=== PATIENT | female | born 1990 | race Caucasian/White ===

== ENCOUNTER 2017-02-02 16:05 | Emergency (ER) | payer MEDICAID ==
[~2017-02-02] VITALS: Ht 165.1 cm; Wt 100.0 kg
[~2017-02-02 16:05] MED LIST: ACET500C5 PO; ONDA4TAB35 PO; PRENAT PO
[2017-02-02 16:07] VITALS: Ht 165.1 cm; Wt 100.0 kg
[2017-02-02] MEDS ORDERED: IBUPROFEN 600 MG TAB PO STA (16:32)
--- NOTE | 2017-02-02 16:40 | ERD ---
ER Documentation Chief Complaint Date/Time DATE: 02/02/17 TIME: 16:38 Chief Complaint BACK PAIN AFETR A FALL HPI This is a 26-year-old female who is breast-feeding presenting to the emergency department complaining of lumbar back pain status post ground-level fall that occurred earlier today. Patient states that she tripped and hit her knees, elbow against the ground and then fell backward on her lumbar back. Patient states the pain is localized 5 out of 10 and describes as achy and constant. She denies any saddle anesthesia, bladder or bowel incontinence, neuro deficits. Patient states that she has not taken any medications for this. ROS All systems reviewed and are negative except as per history of present illness. Medications Home Meds Active Scripts Ibuprofen* (Ibuprofen*) 400 Mg Tablet, 400 MG PO Q6H Y for PAIN, #30 TAB Prov:IAN BLUNT PA-C 02/02/17 Ondansetron Hcl* (Zofran* ODT) 4 mg -ODT Tab.disper, 4 MG PO Q8 Y for NAUSEA AND OR VOMITING, #30 TAB Prov:BRUNA HILL NP 01/21/16 Acetaminophen* (Tylophen*) 500 Mg Capsule, 1 CAP PO Q6H Y for PAIN AND OR ELEVATED TEMP, #20 CAP Prov:BRUNA HILL NP 01/21/16 Reported Medications Multivit/Min/Fol Ac/Iron/Pren* ( S*) Unknown Strength Tab, PO DAILY, TAB 01/21/16 Allergies Allergies: Coded Allergies: No Known Allergy (Unverified , 02/02/17) PMhx/Soc History of Surgery: Yes (C SECTION ) Anesthesia Reaction: No Hx Neurological Disorder: No Hx Respiratory Disorders: No Hx Cardiac Disorders: No Hx Psychiatric Problems: No Hx Miscellaneous Medical Probl: No Hx Alcohol Use: No Hx Substance Use: No Hx Tobacco Use: No Smoking Status: Never smoker Physical Exam Vitals Vital Signs Date Time Temp Pulse Resp B/P Pulse Ox O2 Delivery O2 Flow Rate FiO2 02/02/17 19:20 98.0 68 18 110/76 99 02/02/17 16:07 98.1 89 18 138/78 99 Physical Exam GENERAL: WD/WN, in no apparent distress, non-toxic appearing HENT: NC/AT EYES: Conjunctiva normal NECK: Supple PULM: Normal labored breathing CV: Good capillary refill GI: Non-distended, no guarding BACK: no deformities noted, normal spinal curvature, TTP on lumbar region, tender on spine midline in the lumbosacral region, full range of extremities EXT: No clubbing, cyanosis, or edema NEURO: Moves on all fours, sensation intact, normal gait SKIN: intact PSYCH: Normal mood Results 24 hrs Current Medications Medications (Trade) Dose Ordered Sig/Alfred Route PRN Reason Start Time Stop Time Status Last Admin Dose Admin Ibuprofen (Motrin) 600 mg ONCE STAT PO 02/02/17 16:32 02/02/17 16:34 DC 02/02/17 16:48 Procedures/MDM This is a 26-year-old female who is breast-feeding presenting to the emergency department complaining of lumbar back pain status post ground-level fall that occurred earlier today. Patient states that she tripped and hit her knees, elbow against the ground and then fell backward on her lumbar back. There is no evidence of any fracture dislocation on extremities. Patient did not have any neuro deficits on examination. An x-ray of the lumbar spine has been done did not show any evidence of any fracture dislocation. In the ED patient was given ibuprofen for the pain, she is neurovascularly intact in hematoma stable for discharge for home with precautions to return to the ER for any worsening symptoms. Discussed to follow-up with her primary care physician. Patient understands and agrees with this plan Departure Diagnosis: Primary Impression: Back pain Additional Impression: Injury of back Condition: Stable IAN BLUNT PA-C February 02, 2017 16:40
--- NOTE | 2017-02-02 18:52 | RADRPT ---
PROCEDURE: XR Lumbar Spine. CLINICAL INDICATION: Low back pain following a fall. TECHNIQUE: AP, cone-down lateral, and lateral views of the lumbar spine were obtained. COMPARISON: None. FINDINGS: Hypoplastic ribs are present at T12. Mineralization is within normal limits. Vertebral bodies are normal in height. No fracture is identified. Lumbar lordosis is preserved. No vertebral subluxati on is seen. The intervertebral discs are normal in height. Paraspinal contours are unremarkable. RPTAT:HJJR IMPRESSION: Unremarkable three view series of the lumbar spine. Physician Jyoti Date Time Electronically viewed and signed by Physician Jyoti on 02/02/2017 18:52 JR/
[2017-02-02] MEDS ORDERED: NAPR-260 PO (18:59)
[2017-02-02] MEDS ORDERED: IBUP400T22 PO (19:00)
[2017-02-02 19:20] VITALS: BP 110/76; PULSE 68; RESP 18; TEMP 98
== END 2017-02-02 19:25 | disposition home or self-care (01) ==
LOC: FTE 16:05
DX: S29.9XXA Unspecified injury of thorax, initial encounter (principal); W01.0XXA Fall on same level from slipping, tripping and stumbling without subsequent striking against object, initial encounter; Y92.9 Unspecified place or not applicable
CPT/HCPCS: 72100; Z7502; Z7610

== ENCOUNTER 2017-05-06 00:17 | Inpatient (IN) | payer MEDICAID ==
[~2017-05-06] VITALS: Ht 162.6 cm; Wt 79.6 kg
[~2017-05-06 00:17] MED LIST changes: +IBUP400T22 PO
--- NOTE | 2017-05-06 01:27 | ERA ---
ER Documentation Chief Complaint Date/Time DATE: 05/06/17 TIME: 01:26 Chief Complaint Abdominal pain HPI The patient is a 27-year-old female, presenting to the ER because of epigastric and upper quadrant abdominal pain that began about 2 hour prior to arrival after eating greasy and fatty food. She has similar symptoms previously, denies fever, chills, neck pain, chest pain, dyspnea, nausea, vomiting or dysuria, diarrhea. She does not smoke or drink Past medical history: None Past surgical history: ROS All systems reviewed and are negative except as per history of present illness. Medications Home Meds Active Scripts Ibuprofen* (Ibuprofen*) 400 Mg Tablet, 400 MG PO Q6H Y for PAIN, #30 TAB Prov:IAN BLUNT PA-C 02/02/17 Ondansetron Hcl* (Zofran* ODT) 4 mg -ODT Tab.disper, 4 MG PO Q8 Y for NAUSEA AND OR VOMITING, #30 TAB Prov:BRUNA HILL NP 01/21/16 Acetaminophen* (Tylophen*) 500 Mg Capsule, 1 CAP PO Q6H Y for PAIN AND OR ELEVATED TEMP, #20 CAP Prov:BRUNA HILL NP 01/21/16 Reported Medications Multivit/Min/Fol Ac/Iron/Pren* ( S*) Unknown Strength Tab, PO DAILY, TAB 01/21/16 Allergies Allergies: Coded Allergies: No Known Allergy (Unverified , 02/02/17) PMhx/Soc History of Surgery: Yes (C SECTION ) Anesthesia Reaction: No Hx Neurological Disorder: No Hx Respiratory Disorders: No Hx Cardiac Disorders: No Hx Psychiatric Problems: No Hx Miscellaneous Medical Probl: No Hx Alcohol Use: No Hx Substance Use: No Hx Tobacco Use: No Physical Exam Vitals Vital Signs Date Time Temp Pulse Resp B/P Pulse Ox O2 Delivery O2 Flow Rate FiO2 05/06/17 01:20 97.7 85 20 121/88 100 Room Air 05/06/17 00:24 97.7 63 20 111/79 98 Physical Exam Const: No acute distress. Head: Atraumatic. Eyes: Normal Conjunctiva. ENT: Normal External Ears, Nose and Mouth. Neck: Full range of motion. No meningismus. Resp: Clear to auscultation bilaterally. Cardio: Regular rate and rhythm. Abd: Soft, non distended, normal bowel sounds, moderate epigastric and right upper quadrant tenderness, no right lower quadrant, CVA, rigidity, rebound tenderness Skin: No petechiae or rashes. Back: No midline or flank tenderness. Ext: No cyanosis, or edema. Neur: Awake and alert. No focal deficit Psych: Normal Mood and Affect. Result Diagram: 05/06/17 0130 05/06/17 0130 Results 24 hrs Laboratory Tests Test 05/06/17 01:30 05/06/17 01:50 White Blood Count 10.810^3/ul Red Blood Count 4.8210^6/ul Hemoglobin 13.5g/dl Hematocrit 42.6% Mean Corpuscular Volume 88.4fl Mean Corpuscular Hemoglobin 28.0pg Mean Corpuscular Hemoglobin Concent 31.7g/dl Red Cell Distribution Width 13.3% Platelet Count 05449^3/UL Mean Platelet Volume 10.8fl Neutrophils % 57.5% Lymphocytes % 27.3% Monocytes % 8.6% Eosinophils % 5.5% Basophils % 0.6% Nucleated Red Blood Cells % 0.0/100WBC Neutrophils # 6.210^3/ul Lymphocytes # 2.910^3/ul Monocytes # 0.910^3/ul Eosinophils # 0.610^3/ul Basophils # 0.110^3/ul Nucleated Red Blood Cells # 0.010^3/ul Sodium Level 149mmol/L Potassium Level 3.3mmol/L Chloride Level 102mmol/L Carbon Dioxide Level 29mmol/L Anion Gap 21 Blood Urea Nitrogen 15mg/dl Creatinine 0.91mg/dl Glucose Level 127mg/dl Calcium Level 9.9mg/dl Total Bilirubin 0.8mg/dl Direct Bilirubin 0.00mg/dl Indirect Bilirubin 0.8mg/dl Aspartate Amino Transf (AST/SGOT) 29IU/L Alanine Aminotransferase (ALT/SGPT) 32IU/L Alkaline Phosphatase 100IU/L Total Protein 8.8g/dl Albumin 5.0g/dl Globulin 3.80g/dl Albumin/Globulin Ratio 1.31 Lipase 270U/L Bedside Urine pH (LAB) 7.0 Bedside Urine Protein (LAB) 1+ Bedside Urine Glucose (UA) Negative Bedside Urine Ketones (LAB) Trace Bedside Urine Blood Negative Bedside Urine Nitrite (LAB) Negative Bedside Urine Leukocyte Esterase (L Negative Current Medications Medications (Trade) Dose Ordered Sig/Alfred Route PRN Reason Start Time Stop Time Status Last Admin Dose Admin Sodium Chloride (NS) 1,000 ml @ 1,000 mls/hr Q1H STAT IV 05/06/17 01:44 05/06/17 02:43 DC 05/06/17 01:48 Morphine Sulfate (morphine) 4 mg ONCE STAT IV 05/06/17 01:44 05/06/17 01:45 DC 05/06/17 01:48 Ondansetron HCl 4 mg 4 mg ONCE STAT IV 05/06/17 01:44 05/06/17 01:45 DC 05/06/17 01:48 Potassium Chloride 20 meq/ Sodium Chloride 110 ml @ 55 mls/hr ONCE ONCE IVPB 05/06/17 03:30 05/06/17 05:29 Piperacillin Sod/ Tazobactam Sod (Zosyn 3.375gm/ 100 ml (Pmx)) 100 ml @ 200 mls/hr ONCE ONCE IVPB 05/06/17 03:30 05/06/17 03:59 05/06/17 03:49 Morphine Sulfate (morphine) 4 mg ONCE STAT IV 05/06/17 03:29 05/06/17 03:31 DC 05/06/17 03:50 Ondansetron HCl 4 mg 4 mg ONCE STAT IV 05/06/17 03:29 05/06/17 03:31 DC 05/06/17 03:50 Sodium Chloride (NS) 1,000 ml @ 1,000 mls/hr Q1H ONCE IV 05/06/17 03:30 05/06/17 04:29 05/06/17 03:49 Procedures/[place] [address] Radiology Main Line: [phone] DIAGNOSTIC IMAGING REPORT Patient: NAN BELTRAN : 1990 Age: 27 Sex: F MR #: [id number] DOS: 05/06/17 0145 Ordering MD: MARIE AQUINO MD Location: E/R Room/Bed: PROCEDURE: Ultrasound of the abdomen. CLINICAL INDICATION: Right upper quadrant pain. TECHNIQUE: Sonographic images of the abdomen were performed. COMPARISON: No pertinent prior examinations were submitted for comparison. FINDINGS: Liver: The liver is normal in echogencity and size measuring approximately 17.3 cm. The hepatic veins and portal veins are patent with appropriate directional flow. No intrahepatic ductal dilatation is seen. Gallbladder: The gallbladder is moderately distended. Multiple stones are noted in the gallbladder. Positive sonographic Vidales's sign is reported. There is gallbladder wall thickening measuring up to 3.3 mm. No definite pericholecystic free fluid is seen. The common duct measures 7.9 mm. Pancreas: There is limited evaluation of the pancreatic body and tail. The visualized portions of the pancreas are unremarkable. Kidneys: The right kidney measures 11.3 cm. There is normal corticomedullary differentiation. There is no evidence of renal calculus or hydronephrosis. IVC: The visualized portion of the inferior vena cava is unremarkable. Aorta: Normal in size. Free fluid: None. IMPRESSION: Cholelithiasis with gallbladder wall thickening and positive sonographic Vidales' s sign. Findings are most compatible with acute cholecystitis. Common bile duct dilatation. RPTAT: HIKT .Bruce Tom MD, MD Date Time Electronically viewed and signed by .Bruce Tom MD, MD on 05/06/2017 02:52 .T/ CC: MARIE AQUINO MD MEDICAL MAKING DECISION: The patient is a 27-year-old female, presenting with acute cholecystitis, acute hypokalemia. She was treated with 2 L of normal saline for clinical dehydration, morphine 4 mg IV 2 for pain and Zofran 4 mg IV x2, KCl 20 mEq IV for acute hypokalemia, Zosyn IV for acute cholecystitis The differential diagnoses considered include but are not limited to cholelithiasis, cholecystitis, cystitis, pancreatitis, hepatitis, gastritis, peptic ulcer disease, gastric ulcer, appendicitis, diverticulitis, cholangitis, choledocholithiasis, partial small bowel obstruction. Departure Diagnosis: Primary Impression: Cholecystitis Additional Impression: Hypokalemia Condition: Stable Comments Consultation: I discussed the present with the on-call general surgeon Dr. Mann at 3:40 AM, who was made aware of the lab, the treatment, the patient condition. He accepted the consult I discussed the findings with the patient. I discussed the patient with the on- call hospitalist Dr. Amato at 3:50 AM who was made aware of the lab, the treatment, the patient condition and my discussion with the surgeon. [facility] MARIE AQUINO MD May 06, 2017 01:27
[2017-05-06] MEDS ORDERED: morphine 4 MG/ML VIAL IV STA ×2 (01:44→03:29)
[2017-05-06] MEDS ORDERED: SOD CHLORIDE 0.9% 1,000 ML IV STA (01:44)
[2017-05-06] MEDS ORDERED: ONDANSETRON 4 MG INJ IV STA ×2 (01:44→03:29)
[2017-05-06 01:45] LABS: URINE BLOOD (Dip) POC Negative (NEGATIVE)
[2017-05-06 01:50] LABS: BASOPHIL # 0.1 10^3/ul (0.0-0.1); BASOPHILS % 0.6 % (0.0-2.0); EOSINOPHILS # 0.6 10^3/ul (0.0-0.5); EOSINOPHILS % 5.5 % (0.0-7.0); HEMATOCRIT 42.6 % (37.0-47.0); HEMOGLOBIN 13.5 g/dl (12.0-16.0); LYMPHOCYTES # 2.9 10^3/ul (0.8-2.9); LYMPHOCYTES % 27.3 % (15.0-51.0); MEAN CORPUSCULAR HGB CONC 31.7 g/dl (32.0-37.0); MEAN CORPUSCULAR VOLUME 88.4 fl (82.0-101.0); MEAN PLATELET VOLUME 10.8 fl (7.4-10.4); MONOCYTE # 0.9 10^3/ul (0.3-0.9); MONOCYTES % 8.6 % (0.0-11.0); NEUTROPHIL # 6.2 10^3/ul (1.6-7.5); NEUTROPHILS % 57.5 % (39.0-77.0); PLATELET COUNT 306 10^3/UL (140-415); RED BLOOD COUNT 4.82 10^6/ul (4.20-5.40); RED CELL DISTRIBUTION WIDTH 13.3 % (11.5-14.5); WHITE BLOOD COUNT 10.8 10^3/ul (4.8-10.8)
[2017-05-06 02:08] LABS: ALBUMIN/GLOBULIN RATIO 1.31; BILIRUBIN,INDIRECT 0.8 mg/dl (0-1.1); BILIRUBIN,TOTAL 0.8 mg/dl (0.2-1.3); CALCIUM 9.9 mg/dl (8.4-10.2); CREATININE 0.91 mg/dl (0.44-1.00); POTASSIUM 3.3 mmol/L (3.5-5.1); TOTAL PROTEIN 8.8 g/dl (6.1-8.1)
--- NOTE | 2017-05-06 02:53 | RADRPT ---
PROCEDURE: Ultrasound of the abdomen. CLINICAL INDICATION: Right upper quadrant pain. TECHNIQUE: Sonographic images of the abdomen were performed. COMPARISON: No pertinent prior examinations were submitted for comparison. FINDINGS: Liver: The liver is normal in echogencity and size measuring approximately 17.3 cm. The hepatic vei ns and portal veins are patent with appropriate directional flow. No intrahepatic ductal dilatation is seen. Gallbladder: The gallbladder is moderately distended. Multiple stones are noted in the gallbladder . Positive sonographic Vidales's sign is reported. There is gallbladder wall thickening measuring u p to 3.3 mm. No definite pericholecystic free fluid is seen. The common duct measures 7.9 mm. Pancreas: There is limited evaluation of the pancreatic body and tail. The visualized portions of the pancreas are unremarkable. Kidneys: The right kidney measures 11.3 cm. There is normal corticomedullary differentiation. Ther e is no evidence of renal calculus or hydronephrosis. IVC: The visualized portion of the inferior vena cava is unremarkable. Aorta: Normal in size. Free fluid: None. IMPRESSION: Cholelithiasis with gallbladder wall thickening and positive sonographic Vidales's sign. Findings ar e most compatible with acute cholecystitis. Common bile duct dilatation. RPTAT: HIKT .Bruce Tom MD, MD Date Time Electronically viewed and signed by .Bruce Tom MD, on 05/06/2017 02:52 .T/
[2017-05-06] MEDS ORDERED: POTASSIUM CHLORIDE 20 MEQ in SOD CHLORIDE 0.9% 100 ML IVPB ONE (03:30)
[2017-05-06] MEDS ORDERED: PIPER-TAZO 3.375 GM IV (PMX) 100 ML IVPB ONE (03:30)
[2017-05-06] MEDS ORDERED: SOD CHLORIDE 0.9% 1,000 ML IV ONE (03:30)
--- NOTE | 2017-05-06 04:34 | HP ---
Date/Time of Note Date/Time of Note DATE: 05/06/17 TIME: 04:34 Assessment/Plan VTE Prophylaxis VTE Prophylaxis Intervention: SCD's Assessment/Plan Chief Complaint/Hosp Course This is a 27-year-old female being admitted to the [facility] floor for: #1 acute cholecystitis: LFTs and appear normal within normal values. Ultrasound did show signs of cholelithiasis acute cholecystitis and some common bile duct dilatation. At the current time we will treat with Zosyn. Keep the patient n.p.o. except meds. IV fluid hydration with normal saline. IV narcotic pain control. Surgery on-call is on consult via the ED. #2 obesity: We will check his lipid panel, TSH and A1c. #3 DVT and GI prophylaxis: SCDs, acid gilbert Further treatment strategy will be implemented as per the clinical course Problems: HPI/ROS Admit Date/Time Admit Date/Time Hx of Present Illness Chief complaint: Right upper quadrant abdominal pain This is a 27-year-old female, presenting to the ER because of epigastric and right upper quadrant abdominal pain that began about 2 hour prior to arrival after eating greasy and fatty food. He states the pain was sharp 10 out of 10 in intensity. Currently she states the pain has been subsided with the pain medications that she received in the ER. She has similar symptoms previously, denies fever, chills, neck pain, chest pain, dyspnea, nausea, vomiting or dysuria, diarrhea. Allergies: NKDA Medications: None ROS Const: As per HPI Eyes : No pain discharge or redness or change in visual acuity ENT: No pain, sore throat, congestion, congestion, dysphagia or discharge Respiratory: No shortness of breath, cough, sputum, wheezing, or pleuritic pain Cardiovascular: No chest pain, palpitation, PND, or edema GI : As per HPI Genitourinary: No dysuria, hematuria, flank pain , discharge or CVA tenderness Musculoskeletal: No joint pain, back pain, neck pain, restricted range of motion in neck or joints Skin: No rash, bruising or hives Neuro: No headache, dizziness, syncope, seizure, focal weakness Endocrine: No polyuria, polydipsia, temperature intolerance Psych: No hallucination, depression, anxiety or suicidal ideation PMH/Family/Social Past Medical History Medical History: no pertinent history Past Surgical History 1 Family History Significant Family History: no pertinent family hx Social History Alcohol Use: none Smoking Status: Never smoker Drug Use: none Exam/Review of Systems Vital Signs Vitals Vital Signs Date Time Temp Pulse Resp B/P Pulse Ox O2 Delivery O2 Flow Rate FiO2 05/06/17 04:20 97.7 76 20 110/86 94 Room Air Exam Exam General: Patient is lying in bed sleeping comfortably, easily arousable. HEENT: Atraumatic, normocephalic. The pupils are equal, round and reactive. Extraocular motor are intact Neck: Supple with full range of motion. No rigidity or meningismus Chest: Nontender Lungs: Clear to auscultation bilaterally no crackles rales or wheezing Heart: Normal S1-S2, Regular rhythm and rate. No overt murmurs appreciated Abdomen: Soft, nondistended, right upper quadrant tenderness to palpation Extremities: Normal to inspection, no edema no cyanosis Neurologic: Normal mental status, speech normal, cranial nerves II through XII are intact, motor and sensory are intact, no focal weakness Additional Comments PROCEDURE: Ultrasound of the abdomen. CLINICAL INDICATION: Right upper quadrant pain. TECHNIQUE: Sonographic images of the abdomen were performed. COMPARISON: No pertinent prior examinations were submitted for comparison. FINDINGS: Liver: The liver is normal in echogencity and size measuring approximately 17.3 cm. The hepatic veins and portal veins are patent with appropriate directional flow. No intrahepatic ductal dilatation is seen. Gallbladder: The gallbladder is moderately distended. Multiple stones are noted in the gallbladder. Positive sonographic Vidales's sign is reported. There is gallbladder wall thickening measuring up to 3.3 mm. No definite pericholecystic free fluid is seen. The common duct measures 7.9 mm. Pancreas: There is limited evaluation of the pancreatic body and tail. The visualized portions of the pancreas are unremarkable. Kidneys: The right kidney measures 11.3 cm. There is normal corticomedullary differentiation. There is no evidence of renal calculus or hydronephrosis. IVC: The visualized portion of the inferior vena cava is unremarkable. Aorta: Normal in size. Free fluid: None. IMPRESSION: Cholelithiasis with gallbladder wall thickening and positive sonographic Vidales' s sign. Findings are most compatible with acute cholecystitis. Common bile duct dilatation. RPTAT: HIKT .Bruce Tom MD, MD Date Time Electronically viewed and signed by .Bruce Tom MD, MD on 05/06/2017 02:52 .T/ Labs Result Diagram: 05/06/17 0130 05/06/17 0130 Medications Medications Current Medications Potassium Chloride/Sodium Chloride (KCl/NS) 110 ml @ 55 mls/hr ONCE ONCE IVPB Last administered on 05/06/17t 04:27; Admin Dose 55 MLS/HR; Start 05/06/17 at 03:30; Stop 05/06/17 at 05:29 STACI DOMINGUEZ May 06, 2017 04:34
[2017-05-06] MEDS ORDERED: NACL 0.9% 3 ML SYG IV SCH (05:00)
[2017-05-06] MEDS ORDERED: ACETAMINOPHEN 325 MG TAB PO PRN (05:00)
[2017-05-06] MEDS ORDERED: ONDANSETRON 4 MG INJ IV PRN (05:00)
[2017-05-06] MEDS: SOD CHLORIDE 0.9% 1,000 ML IV SCH ×3 (05:29→23:23)
[2017-05-06] MEDS ORDERED: PANTOPRAZOLE 40 MG INJ IV SCH (06:00)
[2017-05-06 07:05] VITALS: TEMP 98
[2017-05-06 07:43] LABS: CHOL/HDL RATIO 2.5 RATIO
[2017-05-06] MEDS: morphine 4 MG/ML VIAL IV PRN ×2 (08:37→13:24)
[2017-05-06 08:56] VITALS: Ht 162.6 cm; Wt 79.6 kg
[2017-05-06 08:57] VITALS: BP 106/69; PULSE 74; RESP 18
[2017-05-06] MEDS: PIPER-TAZO 3.375 GM IV (PMX) 100 ML IVPB SCH ×3 (11:52→19:01)
[2017-05-06 17:48] VITALS: BP 103/67; RESP 16
--- NOTE | 2017-05-06 20:20 | CONS ---
Date/Time of Note Date/Time of Note DATE: 05/06/17 TIME: 20:16 Assessment/Plan Assessment/Plan Chief Complaint/Hosp Course 27-year-old female with acute cholecystitis * Patient clinically feels better * No leukocytosis. LFTs normal. * Continue broad-spectrum intravenous antibiotics * Advance to clear liquid diet Further recommendations will made based on patient's clinical course. Problems: Consultation Date/Type/Reason Admit Date/Time Date of Consultation: May 06, 2017 Type of Consultation: GENERAL SURGERY Reason for Consultation Abdominal pain Hx of Present Illness Patient is a 27-year-old female presented to the emergency room complaining of right upper quadrant abdominal pain for 1 day. This was associated with nausea and vomiting. She denies any diarrhea/constipation or fever/chills. Patient reports a couple of similar episodes in the past which resolved spontaneously after 5 minutes. On arrival to the emergency room and ultrasound was done which showed gallstones and mild gallbladder wall thickening. She has since been admitted and started on broad-spectrum intravenous antibiotics and pain control. Currently, she states she feels better and denies any abdominal pain at this time. A 14 point review of systems was conducted and was negative except for that which is mentioned in HPI Past Medical History Medical History: no pertinent history Past Surgical History 8 months ago Family History Significant Family History: no pertinent family hx Social History Alcohol Use: none Smoking Status: Never smoker Drug Use: none Exam/Review of Systems Vital Signs Vitals Vital Signs Date Time Temp Pulse Resp B/P Pulse Ox O2 Delivery O2 Flow Rate FiO2 05/06/17 17:48 97.8 72 16 103/67 96 05/06/17 08:57 Room Air Exam GENERAL: Awake, alert, oriented x 3. No acute distress. SKIN: No jaundice. HEENT: PERRLA, EOMI, No Scleral Icterus NECK: Supple without JVD CARDIOVASCULAR: S1S2, regular rate and rhythm. No murmurs appreciated. RESPIRATORY: Clear to auscultation bilaterally. ABDOMEN: Soft, bowel sounds present, nondistended, mild right upper quadrant tenderness to palpation. There is no evidence of rebound or guarding.. EXTREMITIES: Free range of motion x 4. No cyanosis, edema, or clubbing. NEUROLOGIC: Cranial nerves II-XII are intact. Sensation is intact grossly. Results Result Diagram: 05/06/17 0130 05/06/17 0130 Results 24 hrs Laboratory Tests Test 05/06/17 01:30 05/06/17 01:50 White Blood Count 10.8 # Red Blood Count 4.82 Hemoglobin 13.5 Hematocrit 42.6 Mean Corpuscular Volume 88.4 Mean Corpuscular Hemoglobin 28.0 L Mean Corpuscular Hemoglobin Concent 31.7 L Red Cell Distribution Width 13.3 Platelet Count 306 Mean Platelet Volume 10.8 H Neutrophils % 57.5 Lymphocytes % 27.3 Monocytes % 8.6 Eosinophils % 5.5 Basophils % 0.6 Nucleated Red Blood Cells % 0.0 Neutrophils # 6.2 Lymphocytes # 2.9 Monocytes # 0.9 Eosinophils # 0.6 H Basophils # 0.1 Nucleated Red Blood Cells # 0.0 Sodium Level 149 H Potassium Level 3.3 L Chloride Level 102 Carbon Dioxide Level 29 Anion Gap 21 H Blood Urea Nitrogen 15 Creatinine 0.91 Glucose Level 127 Hemoglobin A1c 5.2 Calcium Level 9.9 Total Bilirubin 0.8 Direct Bilirubin 0.00 Indirect Bilirubin 0.8 Aspartate Amino Transf (AST/SGOT) 29 Alanine Aminotransferase (ALT/SGPT) 32 Alkaline Phosphatase 100 Total Protein 8.8 H Albumin 5.0 H Globulin 3.80 H Albumin/Globulin Ratio 1.31 Triglycerides Level 68 Cholesterol Level 170 LDL Cholesterol, Calculated 90 HDL Cholesterol 66 Cholesterol/HDL Ratio 2.5 Lipase 270 Thyroid Stimulating Hormone (TSH) 1.280 Bedside Urine pH (LAB) 7.0 Bedside Urine Protein (LAB) 1+ H Bedside Urine Glucose (UA) Negative Bedside Urine Ketones (LAB) Trace H Bedside Urine Blood Negative Bedside Urine Nitrite (LAB) Negative Bedside Urine Leukocyte Esterase (L Negative Medications Medications Current Medications Sodium Chloride (NS) 1,000 ml @ 100 mls/hr Q10H IV Last administered on 18:58; Admin Dose 100 MLS/HR; Start 05/06/17 at 04:34 Ondansetron HCl (Zofran Inj) 4 mg Q6H PRN IV NAUSEA AND/OR VOMITING; Start 08/12 at 05:00 Acetaminophen (Tylenol Tab) 650 mg Q6H PRN PO PAIN LEVEL 1-3 OR FEVER; Start at 05:00 Morphine Sulfate 3 mg 3 mg Q4H PRN IV SEVERE PAIN LEVEL 7-10 Last administered on 05/06/17 13:24; Admin Dose 3 MG; Start 05/06/17 at 05:00 Piperacillin Sod/ Tazobactam Sod (Zosyn 3.375gm/ 100 ml (Pmx)) 100 ml @ 200 mls /hr Q6 IVPB Last administered on 05/06/17t 19:01; Admin Dose 200 MLS/HR; Start 05/06/17 at 08:00 Famotidine (Pepcid Iv) 20 mg BID IV ; Start 05/07/17 at 09:00 Procedures Procedures PROCEDURE: Ultrasound of the abdomen. CLINICAL INDICATION: Right upper quadrant pain. TECHNIQUE: Sonographic images of the abdomen were performed. COMPARISON: No pertinent prior examinations were submitted for comparison. FINDINGS: Liver: The liver is normal in echogencity and size measuring approximately 17.3 cm. The hepatic veins and portal veins are patent with appropriate directional flow. No intrahepatic ductal dilatation is seen. Gallbladder: The gallbladder is moderately distended. Multiple stones are noted in the gallbladder. Positive sonographic Vidales's sign is reported. There is gallbladder wall thickening measuring up to 3.3 mm. No definite pericholecystic free fluid is seen. The common duct measures 7.9 mm. Pancreas: There is limited evaluation of the pancreatic body and tail. The visualized portions of the pancreas are unremarkable. Kidneys: The right kidney measures 11.3 cm. There is normal corticomedullary differentiation. There is no evidence of renal calculus or hydronephrosis. IVC: The visualized portion of the inferior vena cava is unremarkable. Aorta: Normal in size. Free fluid: None. IMPRESSION: Cholelithiasis with gallbladder wall thickening and positive sonographic Vidales' s sign. Findings are most compatible with acute cholecystitis. Common bile duct dilatation. RPTAT: HIKT .Bruce Tom MD, MD Date Time Electronically viewed and signed by .Bruce Tom MD, on 05/06/2017 02:52 .T/ CC: MARIE AQUINO MD, MICHAEL A. MD May 06, 2017 20:20
[2017-05-06 20:31] VITALS: BP 98/59; RESP 16
[2017-05-06] MEDS ORDERED: FAMOTIDINE 20 MG INJ IV SCH (21:00)
[2017-05-07] MEDS: PIPER-TAZO 3.375 GM IV (PMX) 100 ML IVPB SCH ×4 (00:11→18:44)
[2017-05-07 02:59] VITALS: BP 98/60; RESP 16
[2017-05-07 05:50] LABS: BASOPHILS % 0.7 % (0.0-2.0); EOSINOPHILS # 0.4 10^3/ul (0.0-0.5); EOSINOPHILS % 6.9 % (0.0-7.0); HEMOGLOBIN 11.5 g/dl (12.0-16.0); LYMPHOCYTES # 1.5 10^3/ul (0.8-2.9); LYMPHOCYTES % 25.8 % (15.0-51.0); MEAN CORPUSCULAR HEMOGLOBIN 28.2 pg (29.0-33.0); MEAN CORPUSCULAR HGB CONC 31.9 g/dl (32.0-37.0); MEAN CORPUSCULAR VOLUME 88.2 fl (82.0-101.0); MEAN PLATELET VOLUME 11.2 fl (7.4-10.4); MONOCYTE # 0.5 10^3/ul (0.3-0.9); MONOCYTES % 8.8 % (0.0-11.0); NEUTROPHIL # 3.4 10^3/ul (1.6-7.5); NEUTROPHILS % 57.6 % (39.0-77.0); PLATELET COUNT 234 10^3/UL (140-415); RED BLOOD COUNT 4.08 10^6/ul (4.20-5.40); RED CELL DISTRIBUTION WIDTH 13.5 % (11.5-14.5); WHITE BLOOD COUNT 5.9 10^3/ul (4.8-10.8)
[2017-05-07 05:59] LABS: ALBUMIN 3.8 g/dl (3.3-4.9); ALBUMIN/GLOBULIN RATIO 1.26; BILIRUBIN,INDIRECT 1.5 mg/dl (0-1.1); BILIRUBIN,TOTAL 1.5 mg/dl (0.2-1.3); CALCIUM 9.2 mg/dl (8.4-10.2); CREATININE 0.63 mg/dl (0.44-1.00); MAGNESIUM 1.6 mg/dl (1.7-2.5); POTASSIUM 3.5 mmol/L (3.5-5.1); TOTAL PROTEIN 6.8 g/dl (6.1-8.1)
[2017-05-07 08:00] VITALS: BP 99/62; RESP 18
[2017-05-07] MEDS: FAMOTIDINE 20 MG INJ IV SCH ×2 (09:34→20:35)
[2017-05-07] MEDS: SOD CHLORIDE 0.9% 1,000 ML IV SCH (10:36)
--- NOTE | 2017-05-07 16:03 | PDOCDIS ---
Discharge Instructions CONDITION Patient Condition: Stable HOME CARE INSTRUCTIONS: Diet Instructions: Regular FOLLOW UP/APPOINTMENTS Follow-up Plan Follow up with the general surgeon, Dr Mann, to see about getting your gallbladder taken out Office Address [id number] [place] [id number] Office EILEEN FRANCO MD May 07, 2017 16:03
[2017-05-07 17:30] VITALS: BP 113/70; RESP 18
--- NOTE | 2017-05-07 18:22 | PN ---
Date/Time of Note Date/Time of Note DATE: 05/07/17 TIME: 18:19 Assessment/Plan VTE Prophylaxis VTE Prophylaxis Intervention: SCD's Lines/Catheters IV Catheter Type (from Nrsg): Peripheral IV Assessment/Plan Assessment/Plan 27 yo F admitted for abd pain, imaging with acute cholecystitis, concern for CBD stone as well cont abx check MRCP trend LFTs NPO at la for possible procedural intervention, will talk to gen surg tomorrow Subjective 24 Hr Interval Summary Free Text/Dictation Sleeping on my eval this afternoon Exam/Review of Systems Vital Signs Vitals Vital Signs Date Time Temp Pulse Resp B/P Pulse Ox O2 Delivery O2 Flow Rate FiO2 05/07/17 17:30 97.8 81 18 113/70 97 05/06/17 08:57 Room Air Intake and Output 05/06/17 05/06/17 05/07/17 15:00 23:00 07:00 Intake Total 100 ml 1000 ml Balance 100 ml 1000 ml Exam nad, laying in bed resp non labored no gross abd distension no rashes no edema CMP worse this AM than on arrival Results Result Diagram: 05/07/17 0504 05/07/17 0504 Results 24 hrs Laboratory Tests Test 05/07/17 05:04 White Blood Count 5.9 # Red Blood Count 4.08 L Hemoglobin 11.5 L Hematocrit 36.0 L Mean Corpuscular Volume 88.2 Mean Corpuscular Hemoglobin 28.2 L Mean Corpuscular Hemoglobin Concent 31.9 L Red Cell Distribution Width 13.5 Platelet Count 234 # Mean Platelet Volume 11.2 H Neutrophils % 57.6 Lymphocytes % 25.8 Monocytes % 8.8 Eosinophils % 6.9 Basophils % 0.7 Nucleated Red Blood Cells % 0.0 Neutrophils # 3.4 Lymphocytes # 1.5 Monocytes # 0.5 Eosinophils # 0.4 Basophils # 0.0 Nucleated Red Blood Cells # 0.0 Sodium Level 142 Potassium Level 3.5 Chloride Level 101 Carbon Dioxide Level 28 Anion Gap 17 H Blood Urea Nitrogen 5 #L Creatinine 0.63 Glucose Level 88 Calcium Level 9.2 Magnesium Level 1.6 L Total Bilirubin 1.5 H Direct Bilirubin 0.00 Indirect Bilirubin 1.5 H Aspartate Amino Transf (AST/SGOT) 90 H Alanine Aminotransferase (ALT/SGPT) 110 H Alkaline Phosphatase 98 Total Protein 6.8 # Albumin 3.8 # Globulin 3.00 Albumin/Globulin Ratio 1.26 Medications Medications Current Medications Sodium Chloride (NS) 1,000 ml @ 100 mls/hr Q10H IV Last administered on 10:36; Admin Dose 100 MLS/HR; Start 05/06/17 at 04:34 Ondansetron HCl (Zofran Inj) 4 mg Q6H PRN IV NAUSEA AND/OR VOMITING; Start 08/12 at 05:00 Acetaminophen (Tylenol Tab) 650 mg Q6H PRN PO PAIN LEVEL 1-3 OR FEVER; Start at 05:00 Morphine Sulfate 3 mg 3 mg Q4H PRN IV SEVERE PAIN LEVEL 7-10 Last administered on 05/06/17 13:24; Admin Dose 3 MG; Start 05/06/17 at 05:00 Piperacillin Sod/ Tazobactam Sod (Zosyn 3.375gm/ 100 ml (Pmx)) 100 ml @ 200 mls /hr Q6 IVPB Last administered on 05/07/17 12:10; Admin Dose 200 MLS/HR; Start 05/06/17 at 08:00 Famotidine (Pepcid Iv) 20 mg BID IV Last administered on 05/07/17 09:34; Admin Dose 20 MG; Start 05/07/17 at 09:00 EILEEN FRANCO MD May 07, 2017 18:22
--- NOTE | 2017-05-07 18:36 | PN ---
Date/Time of Note Date/Time of Note DATE: 05/07/17 TIME: 18:34 Assessment/Plan Lines/Catheters IV [facility] (from [facility]): Peripheral IV Assessment/Plan Assessment/Plan 27-year-old female with acute cholecystitis * Patient clinically feels better * No leukocytosis * Continue broad-spectrum intravenous antibiotics * Mild elevation of indirect bilirubin and transaminases today. MRCP has been ordered by primary team to evaluate for choledocholithiasis. Will follow up. Further recommendations will made based on patient's clinical course. Subjective 24 Hr Interval Summary Ambulating in halls. Denies abdominal pain. Tolerating regular diet. Afebrile. Exam/Review of Systems Vital Signs Vitals Vital Signs Date Time Temp Pulse Resp B/P Pulse Ox O2 Delivery O2 Flow Rate FiO2 05/07/17 17:30 97.8 81 18 113/70 97 05/06/17 08:57 Room Air Intake and Output 05/06/17 05/06/17 05/07/17 15:00 23:00 07:00 Intake Total 100 ml 1000 ml Balance 100 ml 1000 ml Exam Free Text/Dictation GENERAL: Awake, alert, oriented x 3. No acute distress. SKIN: No jaundice. HEENT: PERRLA, EOMI, No Scleral Icterus CARDIOVASCULAR: S1S2, regular rate and rhythm. No murmurs appreciated. RESPIRATORY: Clear to auscultation bilaterally. ABDOMEN: Soft, bowel sounds present, nondistended, nontender to palpation. EXTREMITIES: Free range of motion x 4. No cyanosis, edema, or clubbing. Results Result Diagram: 05/07/17 0504 05/07/17 0504 MARIE KRISHNAN MD May 07, 2017 18:36
[2017-05-07 20:00] VITALS: BP 105/59; PULSE 69; RESP 19
[2017-05-08] MEDS: PIPER-TAZO 3.375 GM IV (PMX) 100 ML IVPB SCH ×3 (00:52→11:49)
[2017-05-08 02:19] VITALS: BP 106/64; PULSE 75; RESP 18
[2017-05-08 07:09] LABS: ALBUMIN/GLOBULIN RATIO 1.48; BILIRUBIN,INDIRECT 0.8 mg/dl (0-1.1); BILIRUBIN,TOTAL 0.8 mg/dl (0.2-1.3); CALCIUM 9.4 mg/dl (8.4-10.2); CREATININE 1.08 mg/dl (0.44-1.00); POTASSIUM 3.9 mmol/L (3.5-5.1); TOTAL PROTEIN 6.7 g/dl (6.1-8.1)
--- NOTE | 2017-05-08 08:49 | PN ---
Date/Time of Note Date/Time of Note DATE: 05/08/17 TIME: 08:44 Assessment/Plan VTE Prophylaxis VTE Prophylaxis Intervention: ambulation, SCD's Lines/Catheters IV Catheter Type (from Nrs): Peripheral IV Assessment/Plan Chief Complaint/Hosp Course 1. Acute cholecystitis-symptoms clinically improved. -Status post surgery evaluation and pending decision on outpatient basis as inpatient surgical management. -Continue with antibiotics and pain control 2. Mild transaminase elevation secondary to #1. Resolving. However MRCP was already ordered yesterday to rule out choledocho and we will await for results. Plan: Currently patient is n.p.o. for MRI. Diet advancement per surgery. Discharge planning if no plan for inpatient surgical intervention. Case discussed with Dr. White. Problems: Subjective 24 Hr Interval Summary Free Text/Dictation Patient is n.p.o. for MRCP which was yesterday. Exam/Review of Systems Vital Signs Vitals Vital Signs Date Time Temp Pulse Resp B/P Pulse Ox O2 Delivery O2 Flow Rate FiO2 05/08/17 02:19 98.6 75 18 106/64 95 Room Air Intake and Output 05/07/17 05/07/17 05/08/17 15:00 23:00 07:00 Intake Total 540 ml 1960 ml 680 ml Balance 540 ml 1960 ml 680 ml Exam General: Well developed,adequately built, not in any acute distress . HEENT: Normocephalic, Atraumatic, No laceration or hematoma; Eyes: PEERL, Conjunctiva clear, Anicteric sclera Neck: Supple without any lymphadenopathy, nontender, no JVD, no carotid bruits, trachea midline, no thyromegaly Cardiac: S1, S2 auscultated, regular rhythm and rate, no mumurs or gallop Pulmonary: Normal respiratory effort. Chest clear to auscultation bilaterally, no adventitious breath sounds GI: Mild tenderness to right upper quadrant. Otherwise abdomen normal to inspection. Soft, non- distended, no masses, no rebound tenderness or guarding. Bowel sounds active on all four quadrants Genitourinary: Deferred Extremities: No cyanosis, clubbing, or edema. Pulses [2+] bilaterally. Full ROM on all four extremities. No focal weakness appreciated. Neurologic: Alert to person, place, time, and situation. Affect appropriate, intact sensation. Skin: Clean,dry, and intact. No ecchymosis, no rashes, or lesions Results Result Diagram: 05/07/17 0504 05/08/17 0529 Results 24 hrs Laboratory Tests Test 05/08/17 00:05 05/08/17 05:29 Urine Test NEGATIVE Sodium Level 141 Potassium Level 3.9 Chloride Level 103 Carbon Dioxide Level 28 Anion Gap 14 Blood Urea Nitrogen 14 # Creatinine 1.08 H Glucose Level 102 Calcium Level 9.4 Total Bilirubin 0.8 Direct Bilirubin 0.00 Indirect Bilirubin 0.8 Aspartate Amino Transf (AST/SGOT) 55 H Alanine Aminotransferase (ALT/SGPT) 82 H Alkaline Phosphatase 83 Total Protein 6.7 Albumin 4.0 Globulin 2.70 Albumin/Globulin Ratio 1.48 Medications Medications Current Medications Ondansetron HCl (Zofran Inj) 4 mg Q6H PRN IV NAUSEA AND/OR VOMITING; Start 08/12 at 05:00 Acetaminophen (Tylenol Tab) 650 mg Q6H PRN PO PAIN LEVEL 1-3 OR FEVER; Start at 05:00 Morphine Sulfate 3 mg 3 mg Q4H PRN IV SEVERE PAIN LEVEL 7-10 Last administered on 05/06/17 13:24; Admin Dose 3 MG; Start 05/06/17 at 05:00 Piperacillin Sod/ Tazobactam Sod (Zosyn 3.375gm/ 100 ml (Pmx)) 100 ml @ 200 mls /hr Q6 IVPB Last administered on 05/08/17 05:32; Admin Dose 200 MLS/HR; Start 05/06/17 at 08:00 Famotidine (Pepcid Iv) 20 mg BID IV Last administered on 05/07/17 20:35; Admin Dose 20 MG; Start 05/07/17 at 09:00 AUSTEN MESSER NP May 08, 2017 08:49
[2017-05-08] MEDS ORDERED: HYDR-906 PO (08:53)
[2017-05-08] MEDS: FAMOTIDINE 20 MG INJ IV SCH (09:06)
--- NOTE | 2017-05-08 12:28 | PN ---
Date/Time of Note Date/Time of Note DATE: 05/08/17 TIME: 12:26 Assessment/Plan Lines/Catheters IV Catheter Type (from [facility]): Peripheral IV Assessment/Plan Assessment/Plan 27-year-old female with acute cholecystitis * Patient clinically feels better * No leukocytosis * Continue broad-spectrum intravenous antibiotics * Liver enzymes trending down. * For MRCP. If MRCP negative for choledocholithiasis and patient can be discharged home on oral antibiotic with outpatient cholecystectomy. If MRCP does show choledocholithiasis then patient will need GI consult and ERCP. Discussed with patient and nurse at the bedside. Further recommendations will made based on patient's clinical course. Subjective 24 Hr Interval Summary Feeling better. Minimal pain. Tolerating diet. Afebrile. Exam/Review of Systems Vital Signs Vitals Vital Signs Date Time Temp Pulse Resp B/P Pulse Ox O2 Delivery O2 Flow Rate FiO2 05/08/17 02:19 98.6 75 18 106/64 95 Room Air Intake and Output 05/07/17 05/07/17 05/08/17 15:00 23:00 07:00 Intake Total 540 ml 1960 ml 680 ml Balance 540 ml 1960 ml 680 ml Exam Free Text/Dictation GENERAL: Awake, alert, oriented x 3. No acute distress. SKIN: No jaundice. HEENT: PERRLA, EOMI, No Scleral Icterus CARDIOVASCULAR: S1S2, regular rate and rhythm. No murmurs appreciated. RESPIRATORY: Clear to auscultation bilaterally. ABDOMEN: Soft, bowel sounds present, nondistended, minimal epigastric tenderness to deep palpation. No rebound or guarding. EXTREMITIES: Free range of motion x 4. No cyanosis, edema, or clubbing. Results Result Diagram: 05/07/17 0504 05/08/17 0529 MARIE KRISHNAN MD May 08, 2017 12:27
--- NOTE | 2017-05-08 14:14 | RADRPT ---
PROCEDURE: MRI abdomen without contrast; MRCP CLINICAL INDICATION: Abnormal ultrasound TECHNIQUE: Multiplanar, multisequence imaging of the abdomen was obtained without contrast. Imagi ng includes axial T2, T2 fat sat, in and out of phase gradient images, and noncontrast T1 fat-satura lulú images. In addition, a dedicated high T2 signal intensity MRCP images were obtained in multiple planes with 3-D reconstructions. COMPARISON: Ultrasound gallbladder of the same day FINDINGS: MRCP: Multiple layering gallstones are seen in the gallbladder which demonstrates borderline gallbladder w all thickening. There is no intrahepatic or extrahepatic biliary ductal enlargement. There is a sl ight irregular appearance of the distal common duct on MRCP reconstructed images without a definable filling defect. MRI abdomen: There is uniform signal intensity of the liver without evidence of mass. There is a flow void seen within the portal vein without gross evidence for portal vein thrombus. The kidneys are symmetric without hydronephrosis or mass. The adrenal glands are within normal limi ts. The pancreas is uniform without surrounding inflammation. There is no evidence of bowel obstruction or inflammatory changes of the mesentery. There is a mild ly fecal filled colon. The aorta is unremarkable. There are no enlarged lymph nodes. There is no acute osseous abnormality. IMPRESSION: Cholelithiasis is seen with findings suggestive for cholecystitis. There is no biliary ductal dilatation. Slight irregular appearance of the distal common duct is see n on the MRCP reconstructed images which may be artifactual however punctate stones within the commo n duct cannot be fully excluded. RPTAT: AA .Eunice Menjivar MD, MD Date Time Electronically viewed and signed by .Eunice Menjivar MD, MD on 05/08/2017 14:14 .J/
[2017-05-08] MEDS ORDERED: CEPH250S33 PO (16:07)
--- NOTE | 2017-05-08 16:58 | DS ---
Date/Time of Note Date/Time of Note DATE: 05/08/17 TIME: 16:45 Discharge Summary Admission/Discharge Info Admit Date/Time May 06, 2017 at 03:52 Discharge Date/Time Discharge Diagnosis Acute cholecystitis, for outpatient elective cholecystectomy Obesity Patient Condition: Stable Consults Procedures 05/08/17.MRCP Cholelithiasis is seen with findings suggestive for cholecystitis. There is no biliary ductal dilatation. Hospital Course This is a 27-year-old obese female with 8mos ago, who is also breast feeding came in to ER for evaluation of acute right upper quadrant abdominal pain associated with nausea and nonbilious, non bloody vomiting. She was diagnosed with gallstones and mild gallbladder wall thickening via an US. She didnot have fever or leukocytosis. She was then admitted and started on broad- spectrum intravenous antibiotics and pain control. Patient was evaluated by from surgery. Patient was clinically improving with medical management. An MRCP was also done as there was a mild LFT elevation and was negative for choledocholithiasis. she was tolerating diet well. There was no further pain. There was no fever or leukocytosis. LFTs normalized. At this time, as per surgery recs,patient is stable for discharge with outpt evaluation for elective cholecystectomy. Patient in agreement with this plan and she feels back to her baseline. She was also given pain meds and abx up on discharge and information provided to call 's office for outpt cholecystectomy eval. Disposition:Home with PCP/Surgery follow-up Condition on discharge stable. 60mins to coordinate this discharge Case discussed with . Home Meds Active Scripts Cephalexin* (Cephalexin* Susp) 250 Mg/5 Ml Susp.recon, 500 MG PO Q8 for 10 Days , #30 CAP Prov:ODALYS SHEFFIELD [employer]IST 05/08/17 Hydrocodone/Acetaminophen ([place] 5-325 Tablet) 1 Each Tablet, 1 EACH PO Q6H, # 14 TAB Prov:AUSTEN MESSER V. [employer]IST 05/08/17 Discontinued Reported Medications Multivit/Min/Fol Ac/Iron/Pren* ( S*) Unknown Strength Tab, PO DAILY, TAB 01/21/16 Discontinued Scripts Ibuprofen* (Ibuprofen*) 400 Mg Tablet, 400 MG PO Q6H Y for PAIN, #30 TAB Prov:BASHARDOUST,NUSHA N. PA-C 02/02/17 Ondansetron Hcl* (Zofran* ODT) 4 mg -ODT Tab.disper, 4 MG PO Q8 Y for NAUSEA AND OR VOMITING, #30 TAB Prov:BRUNA HILL NP 01/21/16 Acetaminophen* (Tylophen*) 500 Mg Capsule, 1 CAP PO Q6H Y for PAIN AND OR ELEVATED TEMP, #20 CAP Prov:BRUNA HILL NP 01/21/16 Follow-up Plan 1.Follow up with primary care physician in 1 week If you don't have one please let someone know, we can give you resources that may help you pick one. You may also call your insurance company to assign one to you. Review your medication list with your nurse before leaving and if you need new prescriptions please let your nurse know. I may have made changes to your home medications or given you new prescriptions, please let your primary doctor know as well. Stay compliant with your medications and report any side effects to your PCP or pharmacist. Return to the ER if you have any concerns and cannot reach your doctors or call your insurance company, they usually have a nurse that can help you. 2. Call 911 or go to the nearest emergency room if experiencing loss of consciousness, dizziness, chest pain, shortness of breath, vomiting/abdominal pain, speech difficulties, motor weakness or any unusual symptoms. 3. Follow up with the general surgeon, Dr Mann, to see about getting your gallbladder taken out Office Address [address] [place] [address] [place] [id number] Office Primary Care Provider Care Physician No Primary Pending Labs Laboratory Tests Test 05/08/17 00:05 05/08/17 05:29 Urine Test NEGATIVE (NEGATIVE) Sodium Level 141mmol/L (135-144) Potassium Level 3.9mmol/L (3.5-5.1) Chloride Level 103mmol/L (97-110) Carbon Dioxide Level 28mmol/L (21-31) Anion Gap 14 (8-16) Blood Urea Nitrogen 14mg/dl (7-20) Creatinine 1.08mg/dl (0.44-1.00) Glucose Level 102mg/dl (70-220) Calcium Level 9.4mg/dl (8.4-10.2) Total Bilirubin 0.8mg/dl (0.2-1.3) Direct Bilirubin 0.00mg/dl (0.00-0.20) Indirect Bilirubin 0.8mg/dl (0-1.1) Aspartate Amino Transf (AST/SGOT) 55IU/L (15-46) Alanine Aminotransferase (ALT/SGPT) 82IU/L (13-69) Alkaline Phosphatase 83IU/L (42-121) Total Protein 6.7g/dl (6.1-8.1) Albumin 4.0g/dl (3.3-4.9) Globulin 2.70g/dl (1.3-3.2) Albumin/Globulin Ratio 1.48 AUSTEN MESSER V. [employer]IST May 08, 2017 16:55
== END 2017-05-08 19:30 | disposition home or self-care (01) | DRG 446 ==
LOC: E/R 00:17 → MS3 03:52 → MS2 09:02
PROVIDERS: ADMIT Family Medicine; ATTEND Family Medicine
DX: K80.00 Calculus of gallbladder with acute cholecystitis without obstruction (principal); E87.6 Hypokalemia; E66.9 Obesity, unspecified; Z68.30 Body mass index [BMI] 30.0-30.9, adult
CPT/HCPCS: 36415; 74181; 76705; 80053; 80061; 81003; 83036; 83690; 83735; 84443; 84703; 85025; 96374; 96375; 96376; C9113; J2270; J2405; J2543; J3480; J7030

== ENCOUNTER 2017-05-29 13:31 | Emergency (ER) | payer MEDICAID ==
[~2017-05-29] VITALS: Ht 165.1 cm; Wt 83.5 kg
[~2017-05-29 13:31] MED LIST changes: -ACET500C5 PO; +CEPH250S33 PO; +HYDR-906 PO; -IBUP400T22 PO; -ONDA4TAB35 PO; -PRENAT PO
[2017-05-29 13:46] VITALS: Ht 165.1 cm; Wt 83.5 kg
[2017-05-29] MEDS ORDERED: MEDR10TA2 PO (17:28)
--- NOTE | 2017-05-29 17:31 | ERD ---
ER Documentation Chief Complaint Date/Time DATE: 05/29/17 TIME: 17:29 Chief Complaint VAGINAL BLEED MORE THAN 5-6 PADS WITH LARGE CLOTS HPI This 27-year-old female who is here for vaginal bleeding for 21 days. She said that she had a baby 8 months ago and stopped breast-feeding recently. She has had 2 cycles that have been normal 5 days long 27 days apart. She says she started having bleeding 3 weeks ago with clots bleeding can be moderate to heavy at times currently is very mild. No cramps no back pain no dizziness or syncope. She has no chest pain shortness of breath or exertional difficulties ROS All systems reviewed and are negative except as per history of present illness. Medications Home Meds Active Scripts Medroxyprogesterone Acetate* (Provera*) 10 Mg Tablet, 10 MG PO BID for 5 Days, TAB Prov:MOUNIKA MENG DO 05/29/17 Cephalexin* (Cephalexin* Susp) 250 Mg/5 Ml Susp.recon, 500 MG PO Q8 for 10 Days , #30 CAP Prov:ODALYS SHEFFIELD DISTRIBUTOR SALES CONSULTANT 05/08/17 Hydrocodone/Acetaminophen ([place] 5-325 Tablet) 1 Each Tablet, 1 EACH PO Q6H, # 14 TAB Prov:AUSTEN MESSER V. DISTRIBUTOR SALES CONSULTANT 05/08/17 Allergies Allergies: Coded Allergies: No Known Allergy (Unverified , 05/06/17) PMhx/Soc Medical and Surgical Hx: pt denies Medical Hx, pt denies Surgical Hx History of Surgery: No Anesthesia Reaction: No Hx Neurological Disorder: No Hx Respiratory Disorders: No Hx Cardiac Disorders: No Hx Psychiatric Problems: No Hx Miscellaneous Medical Probl: No Hx Alcohol Use: No Hx Substance Use: No Hx Tobacco Use: No Smoking Status: Never smoker FmHx Family History: No coronary disease Physical Exam Vitals Vital Signs Date Time Temp Pulse Resp B/P Pulse Ox O2 Delivery O2 Flow Rate FiO2 05/29/17 13:46 98.4 86 17 116/75 98 Physical Exam Const: Well-developed, well-nourished Head: Atraumatic, normocephalic Eyes: Normal Conjunctiva, PERRLA, EOMI, normal sclera, no nystagmus ENT: Normal External Ears, Nose and Mouth, moist mucus membranes. Neck: Full range of motion. No meningismus, no lymphadenopathy. Resp: Clear to auscultation bilaterally, no wheezing, rhonchi, rales Cardio: Regular rate and rhythm, no murmurs, S1 S2 present Abd: Soft, non tender x 4, non distended. Normal bowel sounds, no guarding or rebound, no pulsitile abdominal masses or bruits Skin: No petechiae or rashes, no ecchymosis , no maculopapular rash Back: No midline or flank tenderness Ext: No cyanosis, or edema, FROM x 4, normal inspection, neurovascularly intact x 4 Neur: Awake and alert, STR 5/5 x 4, sensation intact x 4, no focal findings, cerebellum intact Psych: Normal Mood and Affect Procedures/MDM test is negative. She likely has some estrogen dominance will give her 5 days of Provera. If this does not work she will need Sprintec control pill for 2 month Departure Diagnosis: Primary Impression: Dysfunctional uterine bleeding Condition: Stable Patient Instructions: Dysfunctional Uterine Bleeding MOUNIKA MENG DO May 29, 2017 17:31
[2017-05-29 17:49] VITALS: BP 122/78; PULSE 79; RESP 18; TEMP 98
== END 2017-05-29 17:50 | disposition home or self-care (01) ==
LOC: FTE 13:31
DX: N93.8 Other specified abnormal uterine and vaginal bleeding (principal)
CPT/HCPCS: 99283

== ENCOUNTER 2017-06-16 12:24 | Emergency (ER) | payer MEDICAID ==
[~2017-06-16] VITALS: Ht 167.6 cm; Wt 81.5 kg
[~2017-06-16 12:24] MED LIST changes: +MEDR10TA2 PO
[2017-06-16 12:29] VITALS: Ht 167.6 cm; Wt 81.5 kg
[2017-06-16 14:51] LABS: BASOPHILS % 0.6 % (0.0-2.0); EOSINOPHILS # 0.4 10^3/ul (0.0-0.5); EOSINOPHILS % 6.4 % (0.0-7.0); HEMATOCRIT 30.5 % (37.0-47.0); HEMOGLOBIN 9.4 g/dl (12.0-16.0); LYMPHOCYTES % 32.8 % (15.0-51.0); MEAN CORPUSCULAR HEMOGLOBIN 27.3 pg (29.0-33.0); MEAN CORPUSCULAR HGB CONC 30.8 g/dl (32.0-37.0); MEAN CORPUSCULAR VOLUME 88.7 fl (82.0-101.0); MEAN PLATELET VOLUME 9.9 fl (7.4-10.4); MONOCYTE # 0.6 10^3/ul (0.3-0.9); MONOCYTES % 9.6 % (0.0-11.0); NEUTROPHIL # 3.1 10^3/ul (1.6-7.5); NEUTROPHILS % 50.4 % (39.0-77.0); PLATELET COUNT 321 10^3/UL (140-415); RED BLOOD COUNT 3.44 10^6/ul (4.20-5.40); RED CELL DISTRIBUTION WIDTH 13.1 % (11.5-14.5); WHITE BLOOD COUNT 6.2 10^3/ul (4.8-10.8)
[2017-06-16 15:08] LABS: ALBUMIN 4.2 g/dl (3.3-4.9); ALBUMIN/GLOBULIN RATIO 1.27; BILIRUBIN,INDIRECT 0.4 mg/dl (0-1.1); BILIRUBIN,TOTAL 0.4 mg/dl (0.2-1.3); CALCIUM 9.4 mg/dl (8.4-10.2); CREATININE 0.61 mg/dl (0.44-1.00); POTASSIUM 3.7 mmol/L (3.5-5.1); TOTAL PROTEIN 7.5 g/dl (6.1-8.1)
--- NOTE | 2017-06-16 15:10 | RADRPT ---
PROCEDURE: US Pelvis Transabdominal and Transvaginal. CLINICAL INDICATION: Pelvic pain and vaginal bleeding. TECHNIQUE: Multiple sonographic images of the pelvis were obtained utilizing rosario scale, Doppler a nd color flow imaging with transabdominal and endovaginal technique. The images were reviewed on a PACS workstation. COMPARISON: None. FINDINGS: The uterus is visualized and measures 6.6 x 4.6 x 5.2 cm. The endometrial echo complex measures 4.1 mm in thickness. No uterine masses are identified. The right ovary measures 3.3 x 2.3 x 3.8 cm . The left ovary measures 3.7 x 2.5 x 2.8 cm. A 1.5 cm simple cyst is seen on the left ovary. Multiple follicles are seen on both ovaries. The ovaries dem onstrate normal vascularity. No adnexal masses or pelvic free fluid are noted. IMPRESSION: 1.5 cm simple cyst on the left ovary. This likely reflects a prominent follicle or physiologic cyst. Otherwise, unremarkable exam. If further characterization of the organs of the pelvis is needed MRI should be considered. RPTAT: AA .Chapo Crow MD, MD Date Time Electronically viewed and signed by .Chapo Crow MD, MD on 06/16/2017 15:10 .P/
[2017-06-16 15:14] LABS: ADD UMIC YES; UR ASCORBIC ACID NEGATIVE (NEGATIVE); UR BACTERIA FEW /HPF (NONE SEEN); UR BILIRUBIN (Dip) NEGATIVE (NEGATIVE); UR BLOOD (Dip) 3+ mg/dL (NEGATIVE); UR CLARITY SLIGHTLY CLOUDY (CLEAR); UR COLOR YELLOW (YELLOW); UR GLUCOSE (Dip) NEGATIVE (NEGATIVE); UR KETONES (Dip) NEGATIVE (NEGATIVE); UR LEUKOCYTE ESTERASE (Dip) NEGATIVE Leu/ul (NEGATIVE); UR MUCUS FEW /HPF (NONE SEEN); UR NITRITE (Dip) NEGATIVE (NEGATIVE); UR RBC > 182 /HPF (0-5); UR SQUAMOUS EPITHELIAL CELL FEW /HPF (FEW); UR TOTAL PROTEIN (Dip) NEGATIVE (NEGATIVE); UR UROBILINOGEN (Dip) NEGATIVE (NEGATIVE)
[2017-06-16] MEDS ORDERED: NAPR-260 PO (15:25)
--- NOTE | 2017-06-16 15:30 | ERD ---
ER Documentation Chief Complaint Date/Time DATE: 06/16/17 TIME: 15:28 Chief Complaint vaginal bleeding and pelvic pain since may 08 on control HPI 27-year-old female complaining of vaginal bleeding 1 month. Patient states she is having some left pelvic pain. Currently is taking control pills given by her primary doctor. AO. She never had this vaginal bleeding or pelvic pain before. Denies any changes in urination or bowel movement. Denies vomiting. Denies fever. ROS All systems reviewed and are negative except as per history of present illness. Medications Home Meds Active Scripts Naproxen* (Naprosyn*) 500 Mg Tablet, 500 MG PO BID Y for PAIN AND/OR INFLAMMATION, #30 TAB Prov:GERHARD WHITEHEAD PA-C 06/16/17 Medroxyprogesterone Acetate* (Provera*) 10 Mg Tablet, 10 MG PO BID for 5 Days, TAB Prov:MOUNIKA MENG DO 05/29/17 Cephalexin* (Cephalexin* Susp) 250 Mg/5 Ml Susp.recon, 500 MG PO Q8 for 10 Days , #30 CAP Prov:ODALYS SHEFFIELD LOCAL ANNOUNCER 05/08/17 Hydrocodone/Acetaminophen ([place] 5-325 Tablet) 1 Each Tablet, 1 EACH PO Q6H, # 14 TAB Prov:AUSTEN MESSER V. LOCAL ANNOUNCER 05/08/17 Allergies Allergies: Coded Allergies: No Known Allergy (Unverified , 05/06/17) PMhx/Soc Medical and Surgical Hx: pt denies Medical Hx History of Surgery: Yes (caesarian section) Anesthesia Reaction: No Hx Neurological Disorder: No Hx Respiratory Disorders: No Hx Cardiac Disorders: No Hx Psychiatric Problems: No Hx Miscellaneous Medical Probl: No Hx Alcohol Use: No Hx Substance Use: No Hx Tobacco Use: No Smoking Status: Never smoker Physical Exam Vitals Vital Signs Date Time Temp Pulse Resp B/P Pulse Ox O2 Delivery O2 Flow Rate FiO2 06/16/17 12:29 98.7 78 20 112/64 99 Physical Exam GENERAL: The patient is well-appearing, well-nourished, in no acute distress CHEST: Clear to auscultation bilaterally. There are no rales, wheezes or rhonchi. HEART: Regular rate and rhythm. No murmurs, clicks, rubs or gallops. No S3 or S4. ABDOMEN:Soft, nontender and nondistended. Good bowel sounds. No rebound or guarding. No gross peritonitis. No gross organomegaly or masses. No Vidales sign or McBurney point tenderness. BACK: No midline or flank tenderness. Pelvic: Off close. No CMT. No adnexal masses or tenderness. Mild bleeding within the vaginal vault. No lesions or open sores peer Result Diagram: 06/16/17 1417 06/16/17 1417 Results 24 hrs Laboratory Tests Test 06/16/17 14:17 White Blood Count 6.210^3/ul Red Blood Count 3.4410^6/ul Hemoglobin 9.4g/dl Hematocrit 30.5% Mean Corpuscular Volume 88.7fl Mean Corpuscular Hemoglobin 27.3pg Mean Corpuscular Hemoglobin Concent 30.8g/dl Red Cell Distribution Width 13.1% Platelet Count 69368^3/UL Mean Platelet Volume 9.9fl Neutrophils % 50.4% Lymphocytes % 32.8% Monocytes % 9.6% Eosinophils % 6.4% Basophils % 0.6% Nucleated Red Blood Cells % 0.0/100WBC Neutrophils # 3.110^3/ul Lymphocytes # 2.010^3/ul Monocytes # 0.610^3/ul Eosinophils # 0.410^3/ul Basophils # 0.010^3/ul Nucleated Red Blood Cells # 0.010^3/ul Urine Color YELLOW Urine Clarity SLIGHTLY CLOUDY Urine pH 5.0 Urine Specific [place] 1.020 Urine Ketones NEGATIVEmg/dL Urine Nitrite NEGATIVEmg/dL Urine Bilirubin NEGATIVEmg/dL Urine Urobilinogen NEGATIVEmg/dL Urine Leukocyte Esterase NEGATIVELeu/ul Urine Microscopic RBC > 182/HPF Urine Microscopic WBC 5/HPF Urine Squamous Epithelial Cells FEW/HPF Urine Bacteria FEW/HPF Urine Mucus FEW/HPF Urine Hemoglobin 3+mg/dL Urine Glucose NEGATIVEmg/dL Urine Total Protein NEGATIVEmg/dl Sodium Level 143mmol/L Potassium Level 3.7mmol/L Chloride Level 107mmol/L Carbon Dioxide Level 27mmol/L Anion Gap 13 Blood Urea Nitrogen 12mg/dl Creatinine 0.61mg/dl Glucose Level 95mg/dl Calcium Level 9.4mg/dl Total Bilirubin 0.4mg/dl Direct Bilirubin 0.00mg/dl Indirect Bilirubin 0.4mg/dl Aspartate Amino Transf (AST/SGOT) 53IU/L Alanine Aminotransferase (ALT/SGPT) 79IU/L Alkaline Phosphatase 91IU/L Total Protein 7.5g/dl Albumin 4.2g/dl Globulin 3.30g/dl Albumin/Globulin Ratio 1.27 Lipase 375U/L Serum HCG, Qualitative NEGATIVE Procedures/MDM DIAGNOSTIC IMAGING REPORT Patient: NAN BELTRAN : 1990 Age: 27 Sex: F MR #: [id number] DOS: 06/16/17 1403 Ordering MD: NOLBERTO WHITEHEAD PA-C Location: [facility] Room/Bed: PROCEDURE: US Pelvis Transabdominal and Transvaginal. CLINICAL INDICATION: Pelvic pain and vaginal bleeding. TECHNIQUE: Multiple sonographic images of the pelvis were obtained utilizing rosario scale, Doppler and color flow imaging with transabdominal and endovaginal technique. The images were reviewed on a PACS workstation. COMPARISON: None. FINDINGS: The uterus is visualized and measures 6.6 x 4.6 x 5.2 cm. The endometrial echo complex measures 4.1 mm in thickness. No uterine masses are identified. The right ovary measures 3.3 x 2.3 x 3.8 cm . The left ovary measures 3.7 x 2.5 x 2.8 cm. A 1.5 cm simple cyst is seen on the left ovary. Multiple follicles are seen on both ovaries. The ovaries demonstrate normal vascularity. No adnexal masses or pelvic free fluid are noted. IMPRESSION: 1.5 cm simple cyst on the left ovary. This likely reflects a prominent follicle or physiologic cyst. Otherwise, unremarkable exam. If further characterization of the organs of the pelvis is needed MRI should be considered. MDM: 27-year-old female complaining of vaginal bleeding. Patient's hemoglobin is low at 9.6 however she is not having dizziness or lightheadedness. Patient is not symptomatically anemic. There is no indication for transfusion at this time. I have low suspicion for ectopic as patient's urine is negative. I have low suspicion for tubo-ovarian abscess or ovarian torsion as patient's ultrasound is within normal limits. Patient is recommended to follow-up with primary care to continue control pills. Patient is told symptoms change or worsen to return to the emergency room immediately. Patient understood and complied with plan Departure Diagnosis: Primary Impression: Ovarian cyst Condition: Stable Patient Instructions: Ovarian Cyst Referrals: [employer] [place] [address] [facility] [address] [place] [address] OFFICE FAX , [place] [address] [place] [address] [facility] [address] [place] [address] DR SANCHEZ, [facility] [address] [facility] [facility] [address] [address] [facility] [address] [place] [address] [facility] [address] [place] [address] [phone] [facility] [id number] - ELIANA BARAJAS [address] [facility], [place] [address] [place] [address] [facility]. [address], [place] [address] [address] RUIZ [facility] [address] [place], [place] [id number] [facility] Hours: 8:00 am - 5:00 pm Additional Instructions: FOLLOW UP WITH YOUR PRIMARY CARE PHYSICIAN TOMORROW.Return to this facility if you are not improving as expected. GERHARD WHITEHEAD PA-C Jun 16, 2017 15:29
[2017-06-16 15:49] VITALS: BP 120/74; PULSE 78; RESP 20
== END 2017-06-16 15:52 | disposition home or self-care (01) ==
LOC: FTE 12:24
DX: N83.202 Unspecified ovarian cyst, left side (principal); R10.2 Pelvic and perineal pain
CPT/HCPCS: 36415; 76830; 76856; 80053; 81001; 83690; 84703; 85025; Z7502

== ENCOUNTER 2018-12-13 09:36 | Emergency (ER) | payer MEDICAID ==
[~2018-12-13] VITALS: Ht 162.6 cm; Wt 82.1 kg
[~2018-12-13 09:36] MED LIST changes: +HYDR-4011 PO; -HYDR-906 PO; +NAPR-985 PO
[2018-12-13 09:43] VITALS: Ht 162.6 cm; Wt 82.1 kg
[2018-12-13] MEDS ORDERED: ALBUTEROL 0.5% (NEB) 2.5 MG/0.5 ML AMP INH STA (10:03)
[2018-12-13] MEDS ORDERED: ONDANSETRON 4 MG INJ IV STA (10:04)
[2018-12-13] MEDS ORDERED: KETOROLAC 15 MG INJ IV STA (10:04)
[2018-12-13] MEDS ORDERED: SOD CHLORIDE 0.9% 1,000 ML IV STA (10:04)
[2018-12-13] MEDS ORDERED: IBUPROFEN 600 MG TAB PO ONE (10:30)
[2018-12-13] MEDS ORDERED: ACETAMINOPHEN 325 MG TAB PO ONE (10:30)
--- NOTE | 2018-12-13 10:46 | ERD ---
ER Documentation Chief Complaint Chief Complaint fever and nausea x 4 days HPI 28-year-old woman complains of nasal congestion rhinorrhea, body aches, headache, fever, cough times 3-4 days. She denies chest pain or shortness of breath, no rash, no recent travel or sick contacts, no abdominal pain, no weakness in her arms or legs, no blurry vision. ROS All systems reviewed and are negative except as per history of present illness. Medications Home Meds Active Scripts Ibuprofen* (Motrin*) 600 Mg Tab, 600 MG PO Q8 PRN for PAIN AND/OR INFLAMMATION, #30 TAB Prov:MIGUEL NO MD 12/13/18 Albuterol Sulfate* (Proair HFA*) 8.5 Gm Hfa.aer.ad, 2 PUFF INH Q4, #1 INHALER Prov:MIGUEL NO MD 12/13/18 Cephalexin* (Keflex*) 500 Mg Capsule, 500 MG PO QID for 7 Days, CAP Prov:MIGUEL NO MD 12/13/18 Discontinued Scripts Naproxen* (Naprosyn*) 500 Mg Tablet, 500 MG PO BID PRN for PAIN AND/OR INFLAMMATION, #30 TAB Prov:GERHARD WHITEHEAD PA-C 06/16/17 Medroxyprogesterone Acetate* (Provera*) 10 Mg Tablet, 10 MG PO BID for 5 Days, TAB Prov:MOUNIKA MENG DO 05/29/17 Cephalexin* (Cephalexin* Susp) 250 Mg/5 Ml Susp.recon, 500 MG PO Q8 for 10 Days, #30 CAP Prov:ODALYS SHEFFIELD DIRECT SALES PROFESSIONAL 05/08/17 Hydrocodone/Acetaminophen ([place] 5-325 Tablet) 1 Each Tablet, 1 EACH PO Q6H, #14 TAB Prov:AUSTEN MESSER NP 05/08/17 Allergies Allergies: Coded Allergies: No Known Allergy (Unverified , 12/13/18) PMhx/Soc None History of Surgery: Yes (caesarian section) Anesthesia Reaction: No Hx Neurological Disorder: No Hx Respiratory Disorders: No Hx Cardiac Disorders: No Hx Psychiatric Problems: No Hx Miscellaneous Medical Probl: No Hx Alcohol Use: No Hx Substance Use: No Hx Tobacco Use: No Smoking Status: Never smoker FmHx Family History: No diabetes Physical Exam Vitals Vital Signs Date Temp Pulse Resp B/P (MAP) Pulse Ox O2 O2 Flow FiO2 Time Delivery Rate 12/13/18 99.3 111 18 106/66 98 Room Air 11:19 (79) 12/13/18 106 20 99 21 10:25 12/13/18 102.0 10:16 12/13/18 102.1 124 20 118/67 98 09:43 (84) Physical Exam GENERAL: Well-developed, well-nourished, febrile HEENT: Moist mucous membranes, positive nasal congestion and rhinorrhea, pink conjunctiva, no pharyngeal erythema or exudates, uvula is midline NEURO: Alert and oriented 3, cranial nerves II through XII intact bilaterally, pupils equal round reactive to light, no focal deficits or facial asymmetry, sensation intact distally Strength 5/5 in upper and lower extremities bilaterally CARDIAC: Tachycardic and regular, no murmurs rubs or gallops LUNGS: Clear bilaterally no wheezing crackles or stridor ABDOMEN: Soft nontender, no guarding, no rigidity, no rebound, no psoas sign no obturator sign. Normoactive bowel sounds SKIN: Warm and dry to touch, no abrasions, contusions, or hematomas, no lacerations, no ecchymosis, no target lesions, and without ulcers EXTREMITIES: No clubbing cyanosis or edema, calves are bilaterally symmetrical, no Homans sign, no popliteal cord sign. Distal pulses equal and bilateral PSYCH: Normal affect without agitation or irritability Result Diagram: 12/13/18 1012 12/13/18 1012 Results 24 hrs Laboratory Tests Test 12/13/18 10:05 12/13/18 10:11 12/13/18 10:12 12/13/18 10:14 Urine Color JOH[place]ON Urine Clarity CLOUDY Urine pH 5.0 Urine Specific 1.029 Cameron Urine Ketones TRACE mg/dL Urine Nitrite NEGATIVE mg/dL Urine Bilirubin NEGATIVE mg/dL Urine 1+ mg/dL Urobilinogen Urine Leukocyte 1+ Rogelio/ul Esterase Urine Microscopic 2 /HPF RBC Urine Microscopic 14 /HPF WBC Urine Squamous MANY /HPF Epithelial Cells Urine Bacteria MODERATE /HPF Urine Mucus MANY /HPF Urine Hemoglobin NEGATIVE mg/dL Urine Glucose NEGATIVE mg/dL Urine Total 1+ mg/dl Protein POC Venous 1.0 mmol/L Lactate White Blood Count 7.1 10^3/ul Red Blood Count 4.39 10^6/ul Hemoglobin 12.2 g/dl Hematocrit 39.0 % Mean Corpuscular 88.8 fl Volume Mean Corpuscular 27.8 pg Hemoglobin Mean Corpuscular 31.3 g/dl Hemoglobin Concen t Red Cell 13.1 % Distribution Width Platelet Count 218 10^3/UL Mean Platelet 10.4 fl Volume Immature 0.300 % Granulocytes % Neutrophils % 75.3 % Lymphocytes % 9.8 % Monocytes % 14.2 % Eosinophils % 0.1 % Basophils % 0.3 % Nucleated Red 0.0 /100WBC Blood Cells % Immature 0.020 10^3/ul Granulocytes # Neutrophils # 5.3 10^3/ul Lymphocytes # 0.7 10^3/ul Monocytes # 1.0 10^3/ul Eosinophils # 0.0 10^3/ul Basophils # 0.0 10^3/ul Nucleated Red 0.0 10^3/ul Blood Cells # Sodium Level 139 mmol/L Potassium Level 3.2 mmol/L Chloride Level 102 mmol/L Carbon Dioxide 27 mmol/L Level Anion Gap 10 Blood Urea 7 mg/dl Nitrogen Creatinine 0.68 mg/dl Est Glomerular > 60 mL/min Filtrat Rate mL/min Glucose Level 119 mg/dl Calcium Level 9.2 mg/dl Total Bilirubin 0.8 mg/dl Direct Bilirubin 0.00 mg/dl Indirect 0.8 mg/dl Bilirubin Aspartate Amino 46 IU/L Transf (AST/SGOT) Alanine 36 IU/L Aminotransferase (ALT/SGPT) Alkaline 93 IU/L Phosphatase Total Protein 8.1 g/dl Albumin 4.3 g/dl Globulin 3.80 g/dl Albumin/Globulin 1.13 Ratio Lipase 196 U/L POC Beta HCG, NEGATIVE Qualitative Current Medications Medications Dose Sig/Alfred Start Time Status Last (Trade) Ordered Route PRN Stop Time Admin Dose Reason Admin Albuterol 5 mg ONCE STAT 12/13/18 DC 12/13/18 (Proventil INH 10:03 10:17 0.5% (Neb)) 12/13/18 10:06 Ibuprofen 600 mg ONCE ONCE 12/13/18 DC 12/13/18 (Motrin) PO 10:30 10:17 12/13/18 10:31 Sodium 1,000 ml @ Q30M STAT 12/13/18 DC 12/13/18 Chloride 2,000 mls/hr IV 10:04 10:18 12/13/18 10:33 Ondansetron 4 mg ONCE STAT 12/13/18 DC 12/13/18 HCl (Zofran IV 10:04 10:16 Inj) 12/13/18 10:06 Ketorolac 15 mg ONCE STAT 12/13/18 DC 12/13/18 Tromethamine IV 10:04 10:17 (Toradol) 12/13/18 10:06 650 mg ONCE ONCE 12/13/18 DC 12/13/18 Acetaminophen PO 10:30 10:16 (Tylenol 12/13/18 10:31 Tab) Procedures/MDM IV line established patient placed on site monitor rhythm strip revealed a sinus tachycardia at 110 bpm. Patient was febrile. Blood and urine cultures have been ordered results are pending I will follow-up. I do not suspect sepsis. I administered 2 L normal saline IV, Toradol 15 mg IV, Zofran 4 mg IV, acetaminophen p.o. for fever, and albuterol 5 mg via nebulizer for cough. One AP view of the chest performed, read by me reveals no acute infiltrates, normal mediastinum, sharp costophrenic and cardiac borders, no air under the diaphragm. Otherwise unremarkable chest x-ray. Lactic acid was low at 1, CBC and electrolytes are normal, liver function tests normal, test negative, urine analysis positive for infection. Influenza A was positive, influenza B swab was negative I administered ceftriaxone 1 g IV for UTI. Patient defervesced and tachycardia resolved, she feels much better and looks otherwise well. I did inform her that she is influenza A positive and it seems she does have a urinary tract infection as well, I did offer her admission into the hospital for IV antibiotics and continued hydration although patient stated she felt better and would like to try outpatient therapy with oral antibiotics and oral hydration at home. I feel this is a reasonable plan and she should do well but I did tell her to return if she develops chest pain, shortness of breath, continued fever despite antipyretics, or any other concerning symptoms. Differential diagnoses considered, included but not limited to acute coronary syndrome, pulmonary embolism, aortic dissection, abdominal aortic aneurysm, sepsis, stroke, meningitis, encephalitis, pneumonia, appendicitis, cholecystitis, bowel obstruction, pyelonephritis, nephrolithiasis, cystitis, as well as metabolic, hematologic, and electrolyte abnormalities. As well as abscess, cellulitis, fractures, and dislocations. Patient feels much better at this time, and vital signs are normal, symptoms have improved. I did give strict instructions to return to the ED if symptoms continue or worsen, patient will otherwise follow-up with primary care physician. Patient understood instructions and agreed to plan. Disclaimer: Inadvertent spelling and grammatical errors are likely due to EHR/dictation software use and do not reflect on the overall quality of patient care. Also, please note that the electronic time recorded on this note does not necessarily reflect the actual time of the patient encounter. Departure Diagnosis: Primary Impression: Acute UTI Additional Impression: Influenza A H1N1 infection Condition: MIGUEL Webb MD Dec 13, 2018 10:46
[2018-12-13] MEDS ORDERED: IBUP-1542 PO (12:11)
[2018-12-13] MEDS ORDERED: CEPH-443 PO (12:11)
[2018-12-13] MEDS ORDERED: ALBU8.5H8 INH (12:11)
[2018-12-13 13:10] VITALS: BP 106/78; PULSE 88; RESP 18
== END 2018-12-13 18:52 | disposition home or self-care (01) ==
LOC: E/R 09:36
DX: N39.0 Urinary tract infection, site not specified (principal); J10.1 Influenza due to other identified influenza virus with other respiratory manifestations; R40.2142 Coma scale, eyes open, spontaneous, at arrival to emergency department; R40.2252 Coma scale, best verbal response, oriented, at arrival to emergency department; R40.2362 Coma scale, best motor response, obeys commands, at arrival to emergency department
CPT/HCPCS: 36415; 71045; 80053; 81001; 81025; 83605; 83690; 85025; 87040; 87086; 87400; 94644; 96374; 96375; J1885; J2405; J7030

== ENCOUNTER 2018-12-14 12:15 | Inpatient (IN) | payer MEDICAID ==
[~2018-12-14] VITALS: Ht 160 cm; Wt 81.8 kg
[~2018-12-14 12:15] MED LIST changes: +ALBU8.5H8 INH; +CEPH-443 PO; -CEPH250S33 PO; -HYDR-4011 PO; +IBUP-1542 PO; -MEDR10TA2 PO; -NAPR-985 PO
[2018-12-14] MEDS ORDERED: SOD CHLORIDE 0.9% 1,000 ML IV STA (12:41)
[2018-12-14] MEDS ORDERED: KETOROLAC 15 MG INJ IV STA (12:41)
[2018-12-14] MEDS ORDERED: CEFTRIAXONE 1 GM/50 ML (PMX) 50 ML IVPB ONE (13:30)
[2018-12-14] MEDS ORDERED: POTASSIUM CHLORIDE (SR) 20 MEQ TAB PO STA ×2 (13:47)
[2018-12-14] MEDS ORDERED: NACL 0.9% 3 ML SYG IV SCH (14:00)
--- NOTE | 2018-12-14 14:11 | HP ---
Date/Time of Note Date/Time of Note DATE: 12/14/18 TIME: 13:51 Assessment/Plan VTE Prophylaxis SCD applied (from Nsg): Yes Pharmacological prophylaxis: NA/contraindicated Pharm contraindication: low risk/ambulating Lines/Catheters IV Catheter Type (from Nrsg): Sal[place] Lock Assessment/Plan Hospital Course SUBJECTIVE: Seen and evaluated patient in ER room 13. Complaining of headache, nausea, lower abdominal pain. OBJECTIVE: Vital signs-see below PHYSICAL EXAM: Constitutional: Well-developed, adequately built, having headaches and myalgias. Psych: nl mood/affect, no complaints Head: atraumatic, normocephalic Eyes: nl conjunctiva, nl sclera ENMT: mucosa pink and moist, nl external ears & nose Neck: non-tender, supple Respiratory: clear to auscultation, normal air movement Cardiovascular: nl pulses, regular rate and rhythm Gastrointestinal: Tenderness lower abdomen. no rebound tenderness.. soft, bowel sounds active in all 4 quadrants. Musculoskeletal/extremities: +Myalgias. nl extremities to inspection, motor strength equal bilaterally, no focal deficit. Normal pulses,no cyanosis, no e brionna. Neurological: Alert oriented 3,nl speech, nl strength Skin: nl turgor ASSESSMENT/PLAN: 28-year-old female with no significant past medical history, here with spiking fevers, headache, nausea, abd pain, myalgia, found to have influenza positive and a UTI. 1. Influenza A -Although >48 hrs have elapsed, we will initiate Tamiflu treatment as patient is now in sepsis and at increased risk of complications. -IV Hydration, supportive care 2. Urinary tract infection -Likely cause of nausea/lower abdominal pain. -We will treat with ceftriaxone and will obtain urine cultures. 3. Sepsis secondary to 1&2. -Treatment as per above. -Cultures to follow 4. Hypokalemia -Replete and monitor. 5. Obesity -Weight reduction advised. We will also obtain a fasting lipid panel and A1c. DVT prophylaxis: SCDs/ambulation PUD prophylaxis: Not indicated CODE STATUS: Full code Diet: Regular diet. Rest of the management depend on hospital course. Approximately 60 m spent on this history and physical. Patient was seen in collaboration with Dr. Trimble. Result Diagram: 12/14/18 1257 12/14/18 1257 Results 24hrs Laboratory Tests Test 12/14/18 12:57 12/14/18 13:11 White Blood Count 8.2 Red Blood Count 4.31 Hemoglobin 12.1 Hematocrit 39.0 Mean Corpuscular Volume 90.5 Mean Corpuscular Hemoglobin 28.1 L Mean Corpuscular Hemoglobin Concent 31.0 L Red Cell Distribution Width 13.1 Platelet Count 203 Mean Platelet Volume 10.4 Immature Granulocytes % 0.400 Neutrophils % 76.9 Lymphocytes % 11.0 L Monocytes % 11.3 H Eosinophils % 0.2 Basophils % 0.2 Nucleated Red Blood Cells % 0.0 Immature Granulocytes # 0.030 Neutrophils # 6.3 Lymphocytes # 0.9 Monocytes # 0.9 Eosinophils # 0.0 Basophils # 0.0 Nucleated Red Blood Cells # 0.0 Urine Color JOHNSON Urine Clarity CLOUDY A Urine pH 5.0 Urine Specific [place] 1.026 Urine Ketones TRACE A Urine Nitrite NEGATIVE Urine Bilirubin NEGATIVE Urine Urobilinogen 2+ H Urine Leukocyte Esterase TRACE A Urine Microscopic RBC 2 Urine Microscopic WBC 18 H Urine Squamous Epithelial Cells MANY A Urine Bacteria FEW A Urine Mucus MODERATE Urine Hemoglobin NEGATIVE Urine Glucose NEGATIVE Urine Total Protein 2+ H Sodium Level 143 Potassium Level 3.1 L Chloride Level 98 Carbon Dioxide Level 31 Anion Gap 14 H Blood Urea Nitrogen 6 L Creatinine 0.64 Est Glomerular Filtrat Rate mL/min > 60 Glucose Level 116 Calcium Level 9.2 Total Bilirubin 0.8 Direct Bilirubin 0.00 Indirect Bilirubin 0.8 Aspartate Amino Transf (AST/SGOT) 49 H Alanine Aminotransferase (ALT/SGPT) 38 Alkaline Phosphatase 84 Total Protein 8.0 Albumin 4.1 Globulin 3.90 H Albumin/Globulin Ratio 1.05 Lipase 129 Lactic Acid Level 1.3 HPI/ROS Admit Date/Time Admit Date/Time Hx of Present Illness Is a 28-year-old female with no significant past medical history, presented to the emergency room with spiking fevers/chills, generalized muscle pain, headache which got worse overnight. Apparently, patient has been having flulike symptoms for 4-5 days and was seen in our ER yesterday with similar complaints and her influenza A swab was positive. However, patient left ER as she did not want to be admitted yesterday. Her symptoms got worse overnight and she decided to come back today. Patient also complained of lower abdominal pain and some dysuria. She also had mild nausea. Patient denied chest pain, palpitation, shortness of breath, vomiting, loss of consciousness, dizziness, or other constitutional symptoms. A chest x-ray from 12/13/2018 showed no evidence of pneumonia. Patient also had blood cultures done on 12/13/2018 with no growth over 24 hours. Today's lab g rossly unremarkable except for potassium 3.1. Patient's urine analysis strongly suggestive of a UTI. Patient's temperature 103.1, pulse rate 125, blood pressure 142/87. Patient is saturating 100% in room air. ROS A 12 point review of system was assessed and is negative other than what is mentioned in the HPI. PMH/Family/Social Past Medical History See HPI Medications Current Medications Ceftriaxone Sodium 50 ml @ 100 mls/hr ONCE ONCE IVPB Last administered on 12/14/18at 13:36; Admin Dose 100 MLS/HR; Start 12/14/18 at 13:30; Stop 12/14/18 at 13:59 Coded Allergies: No Known Allergy (Unverified , 12/14/18) Past Surgical History 2 years ago Family History Significant Family History: no pertinent family hx Social History Denied history of alcohol, smoking or illicit drug use Smoking Status: Never smoker Exam/Review of Systems Vital Signs Vitals Vital Signs Date Temp Pulse Resp B/P (MAP) Pulse Ox O2 O2 Flow FiO2 Time Delivery Rate 12/14/18 120 18 115/86 100 Room Air 13:09 (96) 12/14/18 103.1 12:29 AUSTEN MESSER NP Dec 14, 2018 14:03
--- NOTE | 2018-12-14 14:36 | ERD ---
ER Documentation Chief Complaint Chief Complaint headache and fever x 5 days HPI 28-year-old woman seen and evaluated by me yesterday has continued complaints of body aches, fever, headache, congestion. After full workup yesterday she was diagnosed with influenza A positive viral illness and an acute urinary tract infection, and my initial recommendation to her was to admit her for continued symptomatic and medical management although she refused and preferred outpatient management. Since discharge she states she filled her prescriptions, although she does not have the prescription bottles with her. She states despite medi cations including antibiotics she still has continued symptoms and despite using ibuprofen she has continued fever now has developed some nausea. She denies neck pain or stiffness, no rash, no loss of consciousness, no abdominal pain. ROS All systems reviewed and are negative except as per history of present illness. Medications Home Meds Active Scripts Ibuprofen* (Motrin*) 600 Mg Tab, 600 MG PO Q8 PRN for PAIN AND/OR INFLAMMATION, #30 TAB Prov:MIGUEL NO MD 12/13/18 Albuterol Sulfate* (Proair HFA*) 8.5 Gm Hfa.aer.ad, 2 PUFF INH Q4, #1 INHALER Prov:MIGUEL NO MD 12/13/18 Cephalexin* (Keflex*) 500 Mg Capsule, 500 MG PO QID for 7 Days, CAP Prov:MIGUEL NO MD 12/13/18 Discontinued Scripts Naproxen* (Naprosyn*) 500 Mg Tablet, 500 MG PO BID PRN for PAIN AND/OR INFLAMMATION, #30 TAB Prov:GERHARD WHITEHEAD PA-C 06/16/17 Medroxyprogesterone Acetate* (Provera*) 10 Mg Tablet, 10 MG PO BID for 5 Days, TAB Prov:MOUNIKA MENG DO 05/29/17 Cephalexin* (Cephalexin* Susp) 250 Mg/5 Ml Susp.recon, 500 MG PO Q8 for 10 Days, #30 CAP Prov:ODALYS SHEFFIELD NP 05/08/17 Hydrocodone/Acetaminophen ([place] 5-325 Tablet) 1 Each Tablet, 1 EACH PO Q6H, #14 TAB Prov:AUSTEN MESSER NP 05/08/17 Allergies Allergies: Coded Allergies: No Known Allergy (Unverified , 12/14/18) PMhx/Soc History of Surgery: Yes (caesarian section) Anesthesia Reaction: No Hx Neurological Disorder: No Hx Respiratory Disorders: No Hx Cardiac Disorders: No Hx Psychiatric Problems: No Hx Miscellaneous Medical Probl: No Hx Alcohol Use: No Hx Substance Use: No Hx Tobacco Use: No Smoking Status: Never smoker FmHx Family History: diabetes Physical Exam Vitals Vital Signs Date Temp Pulse Resp B/P (MAP) Pulse Ox O2 O2 Flow FiO2 Time Delivery Rate 12/14/18 120 18 115/86 100 Room Air 13:09 (96) 12/14/18 103.1 125 18 142/87 95 12:29 (105) Physical Exam GENERAL: Well-developed, well-nourished, febrile, congested HEENT: Moist mucous membranes, positive nasal congestion and rhinorrhea, no Kernig sign, no Brudzinski sign, jolt accentuation test negative, no submandibular induration, and no pharyngeal erythema NEURO: Alert and oriented 3, cranial nerves II through XII intact bilaterally, pupils equal round reactive to light, no focal deficits or facial asymmetry, sensation intact distally Strength 5/5 in upper and lower extremities bilaterally CARDIAC: Tachycardic and regular, no murmurs rubs or gallops LUNGS: Clear bilaterally no wheezing crackles or stridor ABDOMEN: Soft nontender, no guarding, no rigidity, no rebound, no psoas sign no obturator sign. SKIN: Warm and dry to touch, no abrasions, contusions, or hematomas, no lacerations, no ecchymosis, no target lesions, and without ulcers EXTREMITIES: No clubbing cyanosis or edema, calves are bilaterally symmetrical, no Homans sign, no popliteal cord sign. Distal pulses equal and bilateral PSYCH: Normal affect without agitation or irritability Result Diagram: 12/14/18 1257 12/14/18 1257 Results 24 hrs Laboratory Tests Test 12/14/18 12:57 12/14/18 13:11 White Blood Count 8.2 10^3/ul Red Blood Count 4.31 10^6/ul Hemoglobin 12.1 g/dl Hematocrit 39.0 % Mean Corpuscular Volume 90.5 fl Mean Corpuscular Hemoglobin 28.1 pg Mean Corpuscular Hemoglobin Concent 31.0 g/dl Red Cell Distribution Width 13.1 % Platelet Count 203 10^3/UL Mean Platelet Volume 10.4 fl Immature Granulocytes % 0.400 % Neutrophils % 76.9 % Lymphocytes % 11.0 % Monocytes % 11.3 % Eosinophils % 0.2 % Basophils % 0.2 % Nucleated Red Blood Cells % 0.0 /100WBC Immature Granulocytes # 0.030 10^3/ul Neutrophils # 6.3 10^3/ul Lymphocytes # 0.9 10^3/ul Monocytes # 0.9 10^3/ul Eosinophils # 0.0 10^3/ul Basophils # 0.0 10^3/ul Nucleated Red Blood Cells # 0.0 10^3/ul Urine Color JOHNSON Urine Clarity CLOUDY Urine pH 5.0 Urine Specific [place] 1.026 Urine Ketones TRACE mg/dL Urine Nitrite NEGATIVE mg/dL Urine Bilirubin NEGATIVE mg/dL Urine Urobilinogen 2+ mg/dL Urine Leukocyte Esterase TRACE Rogelio/ul Urine Microscopic RBC 2 /HPF Urine Microscopic WBC 18 /HPF Urine Squamous Epithelial Cells MANY /HPF Urine Bacteria FEW /HPF Urine Mucus MODERATE /HPF Urine Hemoglobin NEGATIVE mg/dL Urine Glucose NEGATIVE mg/dL Urine Total Protein 2+ mg/dl Sodium Level 143 mmol/L Potassium Level 3.1 mmol/L Chloride Level 98 mmol/L Carbon Dioxide Level 31 mmol/L Anion Gap 14 Blood Urea Nitrogen 6 mg/dl Creatinine 0.64 mg/dl Est Glomerular Filtrat Rate mL/min > 60 mL/min Glucose Level 116 mg/dl Calcium Level 9.2 mg/dl Total Bilirubin 0.8 mg/dl Direct Bilirubin 0.00 mg/dl Indirect Bilirubin 0.8 mg/dl Aspartate Amino Transf (AST/SGOT) 49 IU/L Alanine Aminotransferase (ALT/SGPT) 38 IU/L Alkaline Phosphatase 84 IU/L Total Protein 8.0 g/dl Albumin 4.1 g/dl Globulin 3.90 g/dl Albumin/Globulin Ratio 1.05 Lipase 129 U/L Lactic Acid Level 1.3 mmol/L Magnesium Level 1.8 mg/dl Current Medications Medications Dose Sig/Alfred Start Time Status Last (Trade) Ordered Route PRN Stop Time Admin Dose Reason Admin Sodium 1,000 ml @ Q30M STAT 12/14/18 DC 12/14/18 Chloride 2,000 mls/hr IV 12:41 12:56 12/14/18 13:10 Ketorolac 15 mg ONCE STAT 12/14/18 DC 12/14/18 Tromethamine IV 12:41 12:56 (Toradol) 12/14/18 12:42 Ceftriaxone 50 ml @ ONCE ONCE 12/14/18 DC 12/14/18 Sodium 100 mls/hr IVPB 13:30 13:36 12/14/18 13:59 Oseltamivir 75 mg BID PO 12/14/18 Phosphate 14:00 (Tamiflu) Ibuprofen 600 mg Q6 PO 12/14/18 (Motrin) 14:00 12/15/18 13:59 Sodium 1,000 ml @ Q8H IV 12/14/18 Chloride 125 mls/hr 14:00 IV Flush 3 ml PER 12/14/18 (NS 3 ml) PROTOCOL IV 14:00 Ondansetron 4 mg Q6H PRN 12/14/18 HCl (Zofran IV 14:00 Inj) NAUSEA/VOMITI NG 650 mg Q6H PRN 12/14/18 Acetaminophen PO .PAIN 1-3 14:00 (Tylenol OR TEMP Tab) 1 tab Q6H PRN 12/14/18 Acetaminophen PO .MOD PAIN 14:00 / 4-6 Hydrocodone Bitart ([place] (5/325)) Ceftriaxone 50 ml @ Q24H IVPB 12/15/18 Sodium 100 mls/hr 13:00 Potassium 40 meq ONCE STAT 12/14/18 DC Chloride PO 13:47 (Klor-Con 20) 12/14/18 13:52 Potassium 20 meq ONCE STAT 12/14/18 DC Chloride PO 13:47 (Klor-Con 20) 12/14/18 13:52 Procedures/MDM IV line was established patient was placed on patient monitor rhythm strip revealed a sinus tachycardia at 120 bpm with upright P and T waves. Patient was febrile. Blood cultures were obtained yesterday and results are negative, urine cultures from yesterday are still pending. I treated her here with 1 L normal saline IV, Toradol 15 mg IV for complaints of pain and ceftriaxone 1 g IV for acute UTI. CBC is within normal limits, electrolytes revealed mild hypokalemia, urine analysis reveals infection similar to yesterday's result. Liver function tests are within normal limits. Lactic acid level was low, I do not suspect sepsis Given the patient's continued symptoms she will be admitted to [facility] for continued medical management. Departure Diagnosis: Primary Impression: Influenza A H1N1 infection Additional Impressions: Acute UTI Acute hypokalemia Condition: MIGUEL Colon MD Dec 14, 2018 14:36
[2018-12-14] MEDS: ACETAMINOPHEN 325 MG TAB PO PRN (15:36)
[2018-12-14] MEDS: OSELTAMIVIR 75 MG CAP PO SCH ×2 (15:36→22:15)
[2018-12-14] MEDS: IBUPROFEN 600 MG TAB PO SCH ×2 (15:36→20:05)
[2018-12-14] MEDS: ONDANSETRON 4 MG INJ IV PRN (18:35)
[2018-12-14 19:11] VITALS: BP 85/52; PULSE 94; RESP 18
[2018-12-14] MEDS: SOD CHLORIDE 0.9% 1,000 ML IV SCH ×2 (20:06→21:34)
[2018-12-14 20:16] VITALS: BP 95/52; PULSE 91; RESP 18
[2018-12-14 21:23] VITALS: Ht 160 cm; Wt 81.8 kg
[2018-12-14] MEDS: HYDROCODONE/APAP (5/325) TAB PO PRN (22:15)
[2018-12-15 02:08] VITALS: BP 95/60; PULSE 96; RESP 18
[2018-12-15] MEDS: GUAIFENESIN/DM 5ML CUP PO PRN ×2 (03:15→17:42)
[2018-12-15] MEDS: SOD CHLORIDE 0.9% 1,000 ML IV SCH ×4 (03:17→21:56)
[2018-12-15] MEDS: IBUPROFEN 600 MG TAB PO SCH ×2 (05:55)
[2018-12-15] MEDS: ONDANSETRON 4 MG INJ IV PRN (05:55)
[2018-12-15 07:17] VITALS: BP 116/64; PULSE 108; RESP 18
[2018-12-15] MEDS: ACETAMINOPHEN 325 MG TAB PO PRN (07:29)
[2018-12-15] MEDS: OSELTAMIVIR 75 MG CAP PO SCH ×2 (09:14→21:55)
--- NOTE | 2018-12-15 11:18 | PN ---
Date/Time of Note Date/Time of Note DATE: 12/15/18 TIME: 11:15 Assessment/Plan VTE Prophylaxis Risk score (from [facility] [place])>0 risk: 1 SCD applied (from [facility] [place]): No SCD contraindicated: other Pharmacological prophylaxis: NA/contraindicated Pharm contraindication: low risk/ambulating Lines/Catheters IV [facility] Type (from [facility] Peripheral IV Urinary Cath still in place: No Assessment/Plan Hospital Course SUBJECTIVE: She feels much better today. She still having on and off low-grade fevers. No further myalgias or headache. OBJECTIVE: Vital signs-see below PHYSICAL EXAM: Constitutional: Well-developed, adequately built, having headaches and myalgias. Psych: nl mood/affect, no complaints Head: atraumatic, normocephalic Eyes: nl conjunctiva, nl sclera ENMT: mucosa pink and moist, nl external ears & nose Neck: non-tender, supple Respiratory: clear to auscultation, normal air movement Cardiovascular: nl pulses, regular rate and rhythm Gastrointestinal: Tenderness lower abdomen. no rebound tenderness.. soft, bowel sounds active in all 4 quadrants. Musculoskeletal/extremities: +Myalgias. nl extremities to inspection, motor strength equal bilaterally, no focal deficit. Normal pulses,no cyanosis, no edema. Neurological: Alert oriented 3,nl speech, nl strength Skin: nl turgor ASSESSMENT/PLAN: 28-year-old female with no significant past medical history, here with spiking fevers, headache, nausea, abd pain, myalgia, found to have influenza positive and a UTI. 1. Influenza A -Recuperating nicely. Continue Tamiflu and supportive care. 2. Urinary tract infection -Urine culture growing mixed that probably contaminated specimen. However, patient did have UTI symptoms on admission as such she will be treated with antibiotics. 3. Sepsis secondary to 1&2. -Treatment as per above. -Cultures to follow 4. Questionable adnexal cyst -We will proceed with pelvic ultrasound 5. Obesity -Weight reduction advised. DVT prophylaxis: SCDs/ambulation PUD prophylaxis: Not indicated CODE STATUS: Full code Diet: Regular diet. Disposition: Overall, patient with improvement in symptoms. We will follow-up on ultrasound and if no acute process, likely DC planning in next 24 hours if patient remains afebrile over the next 24 hours. Please note that Hungarian translation was used and communicating with the patient. Patient was seen in collaboration with Dr. Gallegos` Result Diagram: 12/15/18 0512/15/18 0521 Results 24hrs Laboratory Tests Test 12/14/18 12:57 12/14/18 13:11 12/15/18 05:21 White Blood Count 8.2 7.0 Red Blood Count 4.31 3.67 L Hemoglobin 12.1 10.4 L Hematocrit 39.0 33.8 L Mean Corpuscular Volume 90.5 92.1 Mean Corpuscular Hemoglobin 28.1 L 28.3 L Mean Corpuscular Hemoglobin Concent 31.0 L 30.8 L Red Cell Distribution Width 13.1 13.2 Platelet Count 203 168 Mean Platelet Volume 10.4 10.7 H Immature Granulocytes % 0.400 0.600 H Neutrophils % 76.9 70.7 Lymphocytes % 11.0 L 15.2 Monocytes % 11.3 H 12.8 H Eosinophils % 0.2 0.6 Basophils % 0.2 0.1 Nucleated Red Blood Cells % 0.0 0.0 Immature Granulocytes # 0.030 0.040 H Neutrophils # 6.3 5.0 Lymphocytes # 0.9 1.1 Monocytes # 0.9 0.9 Eosinophils # 0.0 0.0 Basophils # 0.0 0.0 Nucleated Red Blood Cells # 0.0 0.0 Urine Color JOHNSON Urine Clarity CLOUDY A Urine pH 5.0 Urine Specific [place] 1.026 Urine Ketones TRACE A Urine Nitrite NEGATIVE Urine Bilirubin NEGATIVE Urine Urobilinogen 2+ H Urine Leukocyte Esterase TRACE A Urine Microscopic RBC 2 Urine Microscopic WBC 18 H Urine Squamous Epithelial Cells MANY A Urine Bacteria FEW A Urine Mucus MODERATE Urine Hemoglobin NEGATIVE Urine Glucose NEGATIVE Urine Total Protein 2+ H Urine Test NEGATIVE Sodium Level 143 143 Potassium Level 3.1 L 3.6 Chloride Level 98 104 Carbon Dioxide Level 31 30 Anion Gap 14 H 9 # Blood Urea Nitrogen 6 L 6 L Creatinine 0.64 0.53 Est Glomerular Filtrat Rate mL/min > 60 > 60 Glucose Level 116 92 Calcium Level 9.2 8.5 Total Bilirubin 0.8 0.7 Direct Bilirubin 0.00 0.00 Indirect Bilirubin 0.8 0.7 Aspartate Amino Transf (AST/SGOT) 49 H 39 Alanine Aminotransferase (ALT/SGPT) 38 29 Alkaline Phosphatase 84 71 Total Protein 8.0 6.5 # Albumin 4.1 3.3 Globulin 3.90 H 3.20 Albumin/Globulin Ratio 1.05 1.03 Lipase 129 Lactic Acid Level 1.3 Magnesium Level 1.8 1.8 Hemoglobin A1c 5.1 Phosphorus Level 3.1 Triglycerides Level 92 Cholesterol Level 117 LDL Cholesterol, Calculated 63 HDL Cholesterol 36 Cholesterol/HDL Ratio 3.2 Thyroid Stimulating Hormone (TSH) 0.625 Exam/Review of Systems Exam Vitals Vital Signs Date Temp Pulse Resp B/P (MAP) Pulse Ox O2 O2 Flow FiO2 Time Delivery Rate 12/15/18 98.1 08:48 12/15/18 108 18 116/64 91 Room Air 07:17 (81) Intake and Output 12/14/18 12/14/18 12/15/18 1515:00 23:00 07:00 IntakeIntake Total 2050 ml BalanceBalance 2050 ml Results Results 24hrs Laboratory Tests Test 12/14/18 12:57 12/14/18 13:11 12/15/18 05:21 White Blood Count 8.2 7.0 Red Blood Count 4.31 3.67 L Hemoglobin 12.1 10.4 L Hematocrit 39.0 33.8 L Mean Corpuscular Volume 90.5 92.1 Mean Corpuscular Hemoglobin 28.1 L 28.3 L Mean Corpuscular Hemoglobin Concent 31.0 L 30.8 L Red Cell Distribution Width 13.1 13.2 Platelet Count 203 168 Mean Platelet Volume 10.4 10.7 H Immature Granulocytes % 0.400 0.600 H Neutrophils % 76.9 70.7 Lymphocytes % 11.0 L 15.2 Monocytes % 11.3 H 12.8 H Eosinophils % 0.2 0.6 Basophils % 0.2 0.1 Nucleated Red Blood Cells % 0.0 0.0 Immature Granulocytes # 0.030 0.040 H Neutrophils # 6.3 5.0 Lymphocytes # 0.9 1.1 Monocytes # 0.9 0.9 Eosinophils # 0.0 0.0 Basophils # 0.0 0.0 Nucleated Red Blood Cells # 0.0 0.0 Urine Color JOHNSON Urine Clarity CLOUDY A Urine pH 5.0 Urine Specific [place] 1.026 Urine Ketones TRACE A Urine Nitrite NEGATIVE Urine Bilirubin NEGATIVE Urine Urobilinogen 2+ H Urine Leukocyte Esterase TRACE A Urine Microscopic RBC 2 Urine Microscopic WBC 18 H Urine Squamous Epithelial Cells MANY A Urine Bacteria FEW A Urine Mucus MODERATE Urine Hemoglobin NEGATIVE Urine Glucose NEGATIVE Urine Total Protein 2+ H Urine Test NEGATIVE Sodium Level 143 143 Potassium Level 3.1 L 3.6 Chloride Level 98 104 Carbon Dioxide Level 31 30 Anion Gap 14 H 9 # Blood Urea Nitrogen 6 L 6 L Creatinine 0.64 0.53 Est Glomerular Filtrat Rate mL/min > 60 > 60 Glucose Level 116 92 Calcium Level 9.2 8.5 Total Bilirubin 0.8 0.7 Direct Bilirubin 0.00 0.00 Indirect Bilirubin 0.8 0.7 Aspartate Amino Transf (AST/SGOT) 49 H 39 Alanine Aminotransferase (ALT/SGPT) 38 29 Alkaline Phosphatase 84 71 Total Protein 8.0 6.5 # Albumin 4.1 3.3 Globulin 3.90 H 3.20 Albumin/Globulin Ratio 1.05 1.03 Lipase 129 Lactic Acid Level 1.3 Magnesium Level 1.8 1.8 Hemoglobin A1c 5.1 Phosphorus Level 3.1 Triglycerides Level 92 Cholesterol Level 117 LDL Cholesterol, Calculated 63 HDL Cholesterol 36 Cholesterol/HDL Ratio 3.2 Thyroid Stimulating Hormone (TSH) 0.625 Medications Medication Current Medications Oseltamivir Phosphate (Tamiflu) 75 mg BID PO Last administered on 12/15/18at 09:14; Admin Dose 75 MG; Start 12/14/18 at 14:00 Sodium Chloride 1,000 ml @ 125 mls/hr Q8H IV Last administered on 12/15/18 03:17; Admin Dose 125 MLS/HR; Start 12/14/18 at 14:00 IV Flush (NS 3 ml) 3 ml PER PROTOCOL IV ; Start 12/14/18 at 14:00 Ondansetron HCl (Zofran Inj) 4 mg Q6H PRN IV NAUSEA/VOMITING Last administered on 12/15/18at 05:55; Admin Dose 4 MG; Start 12/14/18 at 14:00 Acetaminophen (Tylenol Tab) 650 mg Q6H PRN PO .PAIN 1-3 OR TEMP Last administered on 12/15/18 07:29; Admin Dose 650 MG; Start 12/14/18 at 14:00 Acetaminophen/ Hydrocodone Bitart ([place] (5/325)) 1 tab Q6H PRN PO .MOD PAIN 4- 6 Last administered on 12/14/18at 22:15; Admin Dose 1 TAB; Start 12/14/18 at 14:00 Ceftriaxone Sodium 50 ml @ 100 mls/hr Q24H IVPB ; Start 12/15/18 at 13:00 Guaifenesin/ Dextromethorphan (Robitussin Dm Liquid Cup) 10 ml Q4H PRN PO COUGH Last administered on 12/15/18at 03:15; Admin Dose 10 ML; Start 12/15/18 at 03:30 Ibuprofen (Motrin) 400 mg Q6 PO ; Start 12/15/18 at 12:00 AUSTEN MESSER NP Dec 15, 2018 11:18
[2018-12-15] MEDS: IBUPROFEN 400 MG TAB PO SCH ×2 (12:29→17:42)
[2018-12-15] MEDS: CEFTRIAXONE 1 GM/50 ML (PMX) 50 ML IVPB SCH (13:30)
[2018-12-15 14:00] VITALS: BP 109/74; PULSE 91; RESP 17
[2018-12-15 19:37] VITALS: BP 106/66; PULSE 89; RESP 20
[2018-12-15] MEDS: HYDROCODONE/APAP (5/325) TAB PO PRN (20:01)
[2018-12-16] MEDS: IBUPROFEN 400 MG TAB PO SCH ×4 (00:09→18:10)
[2018-12-16 01:53] VITALS: BP 99/64; PULSE 82; PULSE 84; PULSE 94; RESP 16
[2018-12-16] MEDS: GUAIFENESIN/DM 5ML CUP PO PRN ×2 (02:34→15:03)
[2018-12-16] MEDS: SOD CHLORIDE 0.9% 1,000 ML IV SCH ×3 (06:08→17:14)
[2018-12-16] MEDS ORDERED: POTASSIUM CHLORIDE (SR) 20 MEQ TAB PO STA (09:04)
--- NOTE | 2018-12-16 09:15 | PN ---
Date/Time of Note Date/Time of Note DATE: 12/16/18 TIME: 09:13 Assessment/Plan VTE Prophylaxis Risk score (from [facility])>0 risk: 1 SCD applied (from [facility]): Yes Pharmacological prophylaxis: heparin Lines/Catheters IV Catheter Type (from [facility]): Peripheral IV Urinary Cath still in place: No Assessment/Plan Problems: (1) Influenza A H1N1 infection Status: Acute Comment: Recovering nicely with supportive therapy. The sepsis is clearing and assuming she does well she can either be discharged late today or early tomorrow morning (2) Acute UTI Status: Acute Comment: Next gram-positive organisms but greater than 100,000 colony-forming units. Finish antibiotic therapy. (3) Acute hypokalemia Status: Resolved Comment: Resolved. I will go ahead and give a little bit of extra potassium to make sure were okay and also some magnesium (4) Cholelithiasis Status: Chronic Comment: Noted. Qualifiers: Cholelithiasis location: gallbladder Cholecystitis presence: without cholecystitis Biliary obstruction: without biliary obstruction Qualified Codes: K80.20 - Calculus of gallbladder without cholecystitis without obstruction (5) Obesity (BMI 30.0-34.9) Status: Chronic Comment: Counseled carefully (6) History of Status: Chronic Comment: Noted. Result Diagram: 12/16/18 0556 12/16/18 0556 Results 24hrs Laboratory Tests Test 12/16/18 05:56 White Blood Count 5.5 # Red Blood Count 3.38 L Hemoglobin 9.6 L Hematocrit 30.9 L Mean Corpuscular Volume 91.4 Mean Corpuscular Hemoglobin 28.4 L Mean Corpuscular Hemoglobin Concent 31.1 L Red Cell Distribution Width 13.0 Platelet Count 171 Mean Platelet Volume 10.7 H Immature Granulocytes % 0.400 Neutrophils % 58.7 Lymphocytes % 28.7 Monocytes % 8.7 Eosinophils % 3.3 Basophils % 0.2 Nucleated Red Blood Cells % 0.0 Immature Granulocytes # 0.020 Neutrophils # 3.2 Lymphocytes # 1.6 Monocytes # 0.5 Eosinophils # 0.2 Basophils # 0.0 Nucleated Red Blood Cells # 0.0 Sodium Level 144 Potassium Level 3.7 Chloride Level 107 Carbon Dioxide Level 28 Anion Gap 9 Blood Urea Nitrogen 7 Creatinine 0.53 Est Glomerular Filtrat Rate mL/min > 60 Glucose Level 88 Calcium Level 8.5 Subjective 24 Hr Interval Summary Free Text/Dictation 28-year-old young lady who is sleeping in bed but awoke and without difficulty. Constitutional: no complaints (No fevers chills or sweats) Respiratory: cough (Cough is decreasing), other (Shortness of breath) Cardiovascular: no complaints Gastrointestinal: no complaints Genitourinary: no complaints Exam/Review of Systems Exam Vitals Vital Signs Date Temp Pulse Resp B/P (MAP) Pulse Ox O2 O2 Flow FiO2 Time Delivery Rate 12/16/18 97.9 84 16 99/64 (76) 95 01:53 12/15/18 Room Air 14:00 Intake and Output 12/15/18 12/15/18 12/16/18 1515:00 23:00 07:00 IntakeIntake Total 1620 ml 1640 ml 1440 ml OutputOutput Total 175 ml BalanceBalance 1445 ml 1640 ml 1440 ml Constitutional: alert, oriented Respiratory: clear to auscultation, normal air movement Cardiovascular: regular rate and rhythm, nl pulses Gastrointestinal: soft, nl liver, spleen, non-tender Results Results 24hrs Laboratory Tests Test 12/16/18 05:56 White Blood Count 5.5 # Red Blood Count 3.38 L Hemoglobin 9.6 L Hematocrit 30.9 L Mean Corpuscular Volume 91.4 Mean Corpuscular Hemoglobin 28.4 L Mean Corpuscular Hemoglobin Concent 31.1 L Red Cell Distribution Width 13.0 Platelet Count 171 Mean Platelet Volume 10.7 H Immature Granulocytes % 0.400 Neutrophils % 58.7 Lymphocytes % 28.7 Monocytes % 8.7 Eosinophils % 3.3 Basophils % 0.2 Nucleated Red Blood Cells % 0.0 Immature Granulocytes # 0.020 Neutrophils # 3.2 Lymphocytes # 1.6 Monocytes # 0.5 Eosinophils # 0.2 Basophils # 0.0 Nucleated Red Blood Cells # 0.0 Sodium Level 144 Potassium Level 3.7 Chloride Level 107 Carbon Dioxide Level 28 Anion Gap 9 Blood Urea Nitrogen 7 Creatinine 0.53 Est Glomerular Filtrat Rate mL/min > 60 Glucose Level 88 Calcium Level 8.5 Medications Medication Current Medications Oseltamivir Phosphate (Tamiflu) 75 mg BID PO Last administered on 12/15/18at 21:55; Admin Dose 75 MG; Start 12/14/18 at 14:00 Sodium Chloride 1,000 ml @ 125 mls/hr Q8H IV Last administered on 12/16/18 06:08; Admin Dose 125 MLS/HR; Start 12/14/18 at 14:00 IV Flush (NS 3 ml) 3 ml PER PROTOCOL IV ; Start 12/14/18 at 14:00 Ondansetron HCl (Zofran Inj) 4 mg Q6H PRN IV NAUSEA/VOMITING Last administered on 12/15/18 05:55; Admin Dose 4 MG; Start 12/14/18 at 14:00 Acetaminophen (Tylenol Tab) 650 mg Q6H PRN PO .PAIN 1-3 OR TEMP Last administered on 12/15/18 07:29; Admin Dose 650 MG; Start 12/14/18 at 14:00 Acetaminophen/ Hydrocodone Bitart ([place]raz[place] (5/325)) 1 tab Q6H PRN PO .MOD PAIN 4- 6 Last administered on 12/15/18 20:01; Admin Dose 1 TAB; Start 12/14/18 at 14:00 Ceftriaxone Sodium 50 ml @ 100 mls/hr Q24H IVPB Last administered on 12/15/18 13:30; Admin Dose 100 MLS/HR; Start 12/15/18 at 13:00 Guaifenesin/ Dextromethorphan (Robitussin Dm Liquid Cup) 10 ml Q4H PRN PO COUGH Last administered on 12/16/18 02:34; Admin Dose 10 ML; Start 12/15/18 at 03:30 Ibuprofen (Motrin) 400 mg Q6 PO Last administered on 12/16/18 06:07; Admin Dose 400 MG; Start 12/15/18 at 12:00 PEDRO SURESH MD Dec 16, 2018 09:15
[2018-12-16] MEDS ORDERED: MAGNESIUM SULFATE 2 GM/50 ML 50 ML IVPB ONE (09:30)
[2018-12-16 09:35] VITALS: BP 105/68; PULSE 72; RESP 16
[2018-12-16] MEDS: OSELTAMIVIR 75 MG CAP PO SCH ×2 (09:36→21:34)
[2018-12-16] MEDS: CEFTRIAXONE 1 GM/50 ML (PMX) 50 ML IVPB SCH (12:15)
[2018-12-16 14:57] VITALS: BP 114/76; PULSE 83; RESP 18
[2018-12-16 19:40] VITALS: BP 93/53; PULSE 79; RESP 16
[2018-12-17] MEDS: IBUPROFEN 400 MG TAB PO SCH ×3 (00:46→12:29)
[2018-12-17] MEDS: SOD CHLORIDE 0.9% 1,000 ML IV SCH ×3 (00:48→10:13)
[2018-12-17 02:00] VITALS: BP 92/54; PULSE 72; RESP 16
[2018-12-17 08:07] VITALS: BP 102/64; PULSE 75; RESP 18
--- NOTE | 2018-12-17 09:04 | DS ---
Date/Time of Note Date/Time of Note DATE: 12/17/18 TIME: 09:00 Discharge Summary Admission/Discharge Info Admit Date/Time Dec 14, 2018 at 13:35 Discharge Date/Time December 17, 2018 Discharge Diagnosis Influenza H1 and 1 with sepsis; UTI; cholelithiasis; obesity; hypokalemia; possible polycystic ovarian syndrome-workup but not complete; iron deficiency anemia Patient Condition: Good Procedures Pelvic ultrasound; abdominal pelvic CT scan Hx of Present Illness Hx of Present Illness Is a 28-year-old female with no significant past medical history, presented to the emergency room with spiking fevers/chills, generalized muscle pain, headache which got worse overnight. Apparently, patient has been having flulike symptoms for 4-5 days and was seen in our ER yesterday with similar complaints and her influenza A swab was positive. However, patient left ER as she did not want to be admitted yesterday. Her symptoms got worse overnight and she decided to come back today. Patient also complained of lower abdominal pain and some dysuria. She also had mild nausea. Patient denied chest pain, palpitation, shortness of breath, vomiting, loss of consciousness, dizziness, or other constitutional symptoms. A chest x-ray from 12/13/2018 showed no evidence of pneumonia. Patient also had blood cultures done on 12/13/2018 with no growth over 24 hours. Today's lab grossly unremarkable except for potassium 3.1. Patient's urine analysis strongly suggestive of a UTI. Patient's temperature 103.1, pulse rate 125, blood pressure 142/87. Patient is saturating 100% in room air. Hospital Course [facility] 28-year-old [place] female admitted with sepsis picture with H1 N1 influenza and urinary tract infection. She had some abdominal pain and pelvic ultrasound demonstrated above average number of cysts in the ovaries and evidence of a recently ruptured ovarian cyst. Improved nicely and rapidly using Tamiflu, and treatment of the urinary tract infection. These note she does have a modest iron deficiency anemia. She is now markedly improved and stable for discharge. Home Meds Active Scripts Ibuprofen* (Motrin*) 600 Mg Tab, 600 MG PO Q8 PRN for PAIN AND/OR INFLAMMATION, #30 TAB Prov:MIGUEL NO MD 12/13/18 Albuterol Sulfate* (Proair HFA*) 8.5 Gm Hfa.aer.ad, 2 PUFF INH Q4, #1 INHALER Prov:MIGUEL NO MD 12/13/18 Cephalexin* (Keflex*) 500 Mg Capsule, 500 MG PO QID for 7 Days, CAP Prov:MIGUEL NO MD 12/13/18 Discontinued Scripts Naproxen* (Naprosyn*) 500 Mg Tablet, 500 MG PO BID PRN for PAIN AND/OR INFLAMMATION, #30 TAB Prov:GERHARD WHITEHEAD PA-C 06/16/17 Medroxyprogesterone Acetate* (Provera*) 10 Mg Tablet, 10 MG PO BID for 5 Days, TAB Prov:MOUNIKA MENG DO 05/29/17 Cephalexin* (Cephalexin* Susp) 250 Mg/5 Ml Susp.recon, 500 MG PO Q8 for 10 Days, #30 CAP Prov:ODALYS SHEFFIELD NP 05/08/17 Hydrocodone/Acetaminophen ([place] 5-325 Tablet) 1 Each Tablet, 1 EACH PO Q6H, #14 TAB Prov:AUSTEN MESSER NP 05/08/17 Follow-up Plan Primary physician in 2 weeks through her insurance Primary Care Provider Care Physician No Primary Time spent on discharge: > 30 minutes PEDRO SURESH MD Dec 17, 2018 09:04
--- NOTE | 2018-12-17 09:05 | PDOCDIS ---
Discharge Instructions DIAGNOSIS Discharge Diagnosis Influenza H1 and 1 with sepsis; UTI; cholelithiasis; obesity; hypokalemia; possible polycystic ovarian syndrome-workup but not complete; iron deficiency anemia CONDITION [id number] Patient Condition: [id number] Good HOME CARE INSTRUCTIONS: [place] Diet Instructions: [id number] Reduced Calorie ACTIVITY: [id number] Activity Restrictions: [id number] No Restrictions FOLLOW UP/APPOINTMENTS Follow-up Plan Primary physician in 2 weeks through her insurance PEDRO SURESH MD Dec 17, 2018 09:05
[2018-12-17] MEDS ORDERED: OSEL75CA16 PO (09:06)
[2018-12-17] MEDS: OSELTAMIVIR 75 MG CAP PO SCH (10:11)
[2018-12-17] MEDS ORDERED: SOD FERRIC GLUC COMPLX 125 MG in SOD CHLORIDE 0.9% 100 ML IVPB ONE (11:00)
== END 2018-12-17 13:37 | disposition home or self-care (01) | DRG 872 ==
LOC: E/R 12:15 → 2NE 13:35
PROVIDERS: ADMIT Internal Medicine; ATTEND Internal Medicine
DX: A41.9 Sepsis, unspecified organism (principal); N39.0 Urinary tract infection, site not specified; J10.89 Influenza due to other identified influenza virus with other manifestations; K80.20 Calculus of gallbladder without cholecystitis without obstruction; E87.6 Hypokalemia; D50.9 Iron deficiency anemia, unspecified; E28.2 Polycystic ovarian syndrome
CPT/HCPCS: 36415; 71045; 74176; 76856; 80048; 80053; 80061; 81001; 81025; 82728; 83036; 83540; 83605; 83690; 83735; 84100; 84443; 84703; 85025; 87040; 87086; 87400; 94644; 96374; 96375; J0696; J1885; J2405; J2916; J3475; J7030